=== PATIENT | male | born 1935 | race Caucasian/White ===

== ENCOUNTER 2016-09-17 23:39 | Emergency (ER) | payer MEDICARE, MEDICAID ==
[~2016-09-17] VITALS: Ht 167.6 cm; Wt 70.8 kg
[~2016-09-17 23:39] MED LIST: BENZTROPINE MESY1 MG PO; DOCUSATE SODIU100 MG ORAL; ISOSORBIDE MONO20 MG PO; LEVEMIR FL100 UNIT/1 SUBQ; MILK OF MA400 MG/51 ORAL; MULTIVITAMINS1 EAC2 ORAL; POTASSIUM20 MEQ/15 GT; QUETIAPINE FUMA25 MG ORAL; TYLENOL650 MG/20. ORAL; ZOLOFT25 MG ORAL
[2016-09-17 23:50] VITALS: BP 110/85
[2016-09-18] MEDS ORDERED: DULCOLAX5 MG RC (01:11)
[2016-09-18] MEDS ORDERED: COLACE100 MG GT (01:11)
[2016-09-18] MEDS ORDERED: ISOSORBIDE1 G1 GT (01:11)
[2016-09-18] MEDS ORDERED: ATIVAN0.5 MG GT (01:11)
[2016-09-18] MEDS ORDERED: DEPAKOTE125 MG GT (01:11)
--- NOTE | 2016-09-18 01:21 | Emergency Room Report ---
History of Present Illness General Chief Complaint: Malfunctioning Gastric Tube Source: Patient, Medical Record, EMS Present Illness HPI Is an 81-year-old male with multiple medical problem and also psychiatric problem. He has a feeding tube in. He comes in a [facility]. He presents with malfunctioning G-tube. A connecting part was not working broken. He has no other complaint. No trauma. Allergies: Coded Allergies: No Known Allergies (Unverified , 04/15/16) Patient History Past Medical History: see triage record, old chart reviewed, psych hx Past Surgical History: none Pertinent Family History: none Social History: Denies: smoking Immunizations: other Reviewed Nursing Documentation: PMH: Agreed, PSxH: Agreed Nursing Documentation-PMH Past Medical History: No History, Except For Hx Cardiac Problems: Yes - Anemia Hx Hypertension: Yes Hx Diabetes: Yes Hx Cancer: No Hx Gastrointestinal Problems: Yes - Dysphagia, GERD History Of Psychiatric Problem: Yes - Unspecified psychosis, Major depressive disorder, anxiety, paranoid schizop Hx Neurological Problems: Yes Hx Dementia: Yes Review of Systems Eye: Denies: blurred vision, eye pain ENT: Denies: ear pain, nose congestion, throat swelling Respiratory: Denies: cough, shortness of breath Cardiovascular: Denies: chest pain, palpitations Gastrointestinal: Denies: abdominal pain, diarrhea, nausea, vomiting Musculoskeletal: Denies: back pain, joint pain Skin: Denies: rash Neurological: Denies: headache, numbness Endocrine: Denies: increased thirst, increased urine Hematologic/Lymphatic: Denies: easy bruising All Other Systems: negative except mentioned in HPI Physical Exam Vital Signs Date Time Temp Pulse Resp B/P Pulse Ox O2 Delivery O2 Flow Rate FiO2 09/17/16 23:41 97.9 61 16 104/82 98 Room Air vitals normal Sp02 EP Interpretation: reviewed, normal General Appearance: well appearing, no apparent distress, alert Head: normocephalic, atraumatic Eyes: bilateral eye EOMI, bilateral eye PERRL ENT: hearing grossly normal, normal pharynx Neck: full range of motion, supple, no meningismus Respiratory: chest non-tender, lungs clear, normal breath sounds Cardiovascular #1: regular rate, rhythm, no murmur Gastrointestinal: normal bowel sounds, non tender, no mass, no organomegaly, no bruit, non-distended Musculoskeletal: back normal, gait/station normal, normal range of motion Neurologic: alert, oriented x3 Psychiatric: mood/affect normal Skin: warm/dry Procedures Additional Procedure Procedure Narrative Procedure: Feeding tube revision Indication: Feeding tube malfunction Description: His feeding tube is flushing fine. The connecting part with valve is broken. I removed this and place a Lorne valve. It flushes easily. Aspirated easily. Patient tolerated procedure without a problem. Medical Decision Making Diagnostic Impression: Primary Impression: Malfunction of percutaneous endoscopic gastrostomy (PEG) tube ER Course Patient presents with malfunctioning feeding tube. His been drinking here without a problem. He is walking around without a problem. We'll discharge home. Last Vital Signs Date Time Temp Pulse Resp B/P Pulse Ox O2 Delivery O2 Flow Rate FiO2 09/17/16 23:50 98.0 78 17 110/85 99 Room Air Status: improved Disposition: XFER SNF Condition: Stable Referrals: Leslie Funes MD (PCP) Patient Instructions: Gastrostomy Tube Home Guide, Adult Additional Instructions: Followup with your DrSamir in 7 days. Return if worse. SANFORD ABREU M.D. Sep 18, 2016 01:21
[2016-09-18 01:40] VITALS: BP 107/84
== END 2016-09-18 01:45 ==
LOC: EDBD 23:39 → EDUNIT# 23:39 → EMR 23:59
DX: K94.23 Gastrostomy malfunction (principal); Y83.8 Other surgical procedures as the cause of abnormal reaction of the patient, or of later complication, without mention of misadventure at the time of the procedure; Y92.89 Other specified places as the place of occurrence of the external cause; I10 Essential (primary) hypertension; E11.9 Type 2 diabetes mellitus without complications; F03.90 Unspecified dementia, unspecified severity, without behavioral disturbance, psychotic disturbance, mood disturbance, and anxiety
CPT/HCPCS: 43760

== ENCOUNTER 2017-02-26 10:21 | Emergency (ER) | payer MEDICARE, MEDICAID ==
[~2017-02-26] VITALS: Ht 175.3 cm; Wt 65.8 kg
[~2017-02-26 10:21] MED LIST changes: +ATIVAN0.5 MG GT; +COLACE100 MG GT; +DEPAKOTE125 MG GT; +DULCOLAX5 MG RC; +ISOSORBIDE1 G1 GT
--- NOTE | 2017-02-26 10:52 | Emergency Room Report ---
History of Present Illness General Chief Complaint: General Complaint Source: Patient, Medical Record Present Illness HPI Patient says with complaints of increasing worsening cough and shortness of breath patient appears to have exertional dyspnea at the boarding care facility There was no reports of vomiting or diarrhea Patient denies any chest pain with this however he does get fatigue more than usual cough has been ongoing for the past 7 days Patient describes phlegm production as well denies any neck pain or photophobia denies any rash Allergies: Coded Allergies: No Known Allergies (Unverified , 04/15/16) Patient History Past Medical History: see triage record Pertinent Family History: none Reviewed Nursing Documentation: PMH: Agreed, PSxH: Agreed Nursing Documentation-PMH Hx Cardiac Problems: Yes - CHF Hx Hypertension: Yes Hx Diabetes: Yes Hx Cancer: No History Of Psychiatric Problem: Yes - SCHIZO Hx Neurological Problems: Yes Hx Dementia: Yes Review of Systems All Other Systems: negative except mentioned in HPI Physical Exam Vital Signs Date Time Temp Pulse Resp B/P (MAP) Pulse Ox O2 Delivery O2 Flow Rate FiO2 02/26/17 10:09 98.1 60 16 120/70 98 Room Air Sp02 EP Interpretation: reviewed, normal General Appearance: no apparent distress Head: normocephalic, atraumatic Eyes: bilateral eye PERRL, bilateral eye EOMI ENT: hearing grossly normal, TMs + canals normal, uvula midline, dry mucus membranes, other - A denturelous Neck: full range of motion, supple, no meningismus, no bony tend Respiratory: no respiratory distress, no retraction, no accessory muscle use, crackles - diffusely Cardiovascular #1: normal peripheral pulses, regular rate, rhythm, no edema, no gallop, no JVD, no murmur Gastrointestinal: normal bowel sounds, non tender, soft, no mass, no organomegaly, non-distended, no guarding, no hernia, no pulsatile mass, no rebound, other - feeding tube in place Genitourinary: no CVA tenderness Musculoskeletal: normal inspection Neurologic: oriented x3, responsive, legal project manager III-XII nml as tested, motor strength/ tone normal, sensory intact Psychiatric: mood/affect normal Skin: normal color, no rash, warm/dry, palpation normal Lymphatic: normal inspection, no adenopathy Medical Decision Making Diagnostic Impression: Primary Impression: Cough Additional Impression: URI (upper respiratory infection) ER Course Patient is a fairly complex patient with multiple differential to consideration including but not limited to cardiac cardiopulmonary and vascular emergencies Patient's imaging of blood work did not show any obvious acute pathology Patient respirations are appropriate no signs of any retractions X-ray does not show any acute pathology patient does not meet criteria for further inpatient care and is discharged back to nursing facility for continued care Hemoglobin 11.8 hematocrit 36.2 these are both mildly low BUN was 34 which is mildly high troponin is 0.01 tooth which has a negative range BNP was elevated at 2300 patient does not show clinical signs of CHF Rhythm Strip Diag. Results EP Interpretation: yes Rate: 66 Rhythm: NSR, no PVC's, no ectopy Chest X-Ray Diagnostic Results Chest X-Ray Diagnostic Results : Chest X-Ray Ordered: Yes # of Views/Limited/Complete: 1 View Indication: Chest Pain EP Interpretation: Yes Interpretation: no consolidation, no effusion, no pneumothorax, no acute cardiopulmonary disease Impression: No acute disease Electronically Signed by: Juwan June DO Last Vital Signs Date Time Temp Pulse Resp B/P (MAP) Pulse Ox O2 Delivery O2 Flow Rate FiO2 02/26/17 10:09 98.1 60 16 120/70 98 Room Air Status: improved Disposition: XFER SNF Condition: Improved Scripts Codeine/Promethazine Hcl* (PROMETHAZINE-CODEINE SYRUP*) 118 Ml Syrup 5 ML ORAL Q8HR Y for For Cough for 5 Days, ML 0 Refills Prov: JUWAN JUNE D.O. 02/26/17 Additional Instructions: Patient is provided with the discharge instructions notified to follow up with primary doctor in the next 2-3 days otherwise return to the er with any worsening symptoms. Please note that this report is being documented using ReferStar technology. This can lead to erroneous entry secondary to incorrect interpretation by the dictating instrument. JUWAN JUNE D.O. Feb 26, 2017 10:52
--- NOTE | 2017-02-26 10:53 | Diagnostic Imaging Report ---
Indication: Dyspnea Comparison: 04/15/16 A single view chest radiograph was obtained. Findings: A mild interstitial opacities are noted within the lungs nonspecific. Overall the findings were seen previously. Heart is borderline enlarged. Bones are slight osteopenic. Impression: Prominence of the pulmonary interstitium nonspecific in nature. No change
[2017-02-26] MEDS ORDERED: Promethazine/Codeine 5ml UD ORAL ONE (11:00)
[2017-02-26 11:51] VITALS: BP 120/70
[2017-02-26 12:00] LABS: BASOPHILS % (AUTO) 0.8 % (0.0-2.0); EOSINOPHILS % (AUTO) 2.4 % (0.0-3.0); LYMPHOCYTES % (AUTO) 19.7 % (20.0-45.0); MEAN CORPUSCULAR HEMOGLOBIN 32.4 PG (27.0-31.0); MEAN CORPUSCULAR HGB CONC 32.5 G/DL (32.0-36.0); MEAN CORPUSCULAR VOLUME 100 FL (80-99); MEAN PLATELET VOLUME 7.6 FL (6.5-10.1); MONOCYTES % (AUTO) 8.3 % (1.0-10.0); NEUTROPHILS % (AUTO) 68.8 % (45.0-75.0); PLATELET COUNT 210 K/UL (150-450); RED BLOOD COUNT 3.64 M/UL (4.70-6.10); RED CELL DISTRIBUTION WIDTH 11.8 % (11.6-14.8); WHITE BLOOD COUNT 6.2 K/UL (4.8-10.8)
[2017-02-26 12:21] LABS: ALANINE AMINOTRANSFERASE 8 U/L (3-41); ALBUMIN/GLOBULIN RATIO 0.8 (1.0-2.7); ANION GAP 7 (5-15); ASPARTATE AMINO TRANSFERASE 15 U/L (5-40); CALCIUM 10.6 mg/dL (8.6-10.2); CARBON DIOXIDE 30 mEQ/L (20-30); CHLORIDE 100 mEQ/L (98-107); CREATININE 0.9 mg/dL (0.7-1.2); HEMOLYSIS 5; LIPASE 32 U/L (< 60); POTASSIUM 4.6 mEQ/L (3.4-4.9); SODIUM 137 mEQ/L (135-145); TOTAL PROTEIN 7.4 g/dL (6.6-8.7)
[2017-02-26 12:32] LABS: CKMB 1.8 ng/mL (< 6.7)
[2017-02-26] MEDS ORDERED: PROMETHAZINE-C118 M1 ORAL (12:44)
[2017-02-26 12:53] VITALS: BP 120/70
[2017-02-26 14:14] LABS: TROPONIN I 0.012 ng/mL (0.000-0.056)
[2017-02-26 19:47] VITALS: BP 120/70
--- NOTE | 2017-03-04 23:12 | Cardiology Report ---
APPROVED REPORT EKG Measurement Heart [id number] CT 100P25 [id number] Sinus bradycardia with short CT Right bundle branch block Lateral infarct, age undetermined Inferior infarct, age undetermined Abnormal ECG
== END 2017-02-26 19:49 | disposition home or self-care (01) ==
LOC: EDBD 10:21 → EMR 11:27 → CANBEDREQ 12:33 → EMR 19:49
DX: J06.9 Acute upper respiratory infection, unspecified (principal); I10 Essential (primary) hypertension; E11.9 Type 2 diabetes mellitus without complications; I50.9 Heart failure, unspecified
CPT/HCPCS: 36415; 71010; 80053; 82550; 82553; 83690; 83880; 84484; 85025; 87040; 93005; 99283

== ENCOUNTER 2017-04-24 12:15 | Inpatient (IN) | payer MEDICARE, MEDICAID ==
[~2017-04-24] VITALS: Ht 165.1 cm; Wt 77.1 kg
[~2017-04-24 12:15] MED LIST changes: +PROMETHAZINE-C118 M1 ORAL
[2017-04-24 14:05] VITALS: BP 108/56
[2017-04-24 14:13] LABS: BASOPHILS % (AUTO) 0.9 % (0.0-2.0); EOSINOPHILS % (AUTO) 1.4 % (0.0-3.0); LYMPHOCYTES % (AUTO) 21.6 % (20.0-45.0); MEAN CORPUSCULAR HEMOGLOBIN 32.8 PG (27.0-31.0); MEAN CORPUSCULAR HGB CONC 33.4 G/DL (32.0-36.0); MEAN CORPUSCULAR VOLUME 98 FL (80-99); MEAN PLATELET VOLUME 7.2 FL (6.5-10.1); PLATELET COUNT 168 K/UL (150-450); RED BLOOD COUNT 3.99 M/UL (4.70-6.10); RED CELL DISTRIBUTION WIDTH 12.9 % (11.6-14.8); WHITE BLOOD COUNT 5.5 K/UL (4.8-10.8)
[2017-04-24] MEDS ORDERED: COGENTIN1 MG ORAL (14:25)
[2017-04-24] MEDS ORDERED: DEPAKENE250 MG/5 M PO (14:25)
[2017-04-24 14:26] LABS: ANION GAP 5 mmol/L (5-15); CALCIUM 8.5 MG/DL (8.5-10.1); CARBON DIOXIDE 27 MMOL/L (21-32); CHLORIDE 110 MMOL/L (98-107); POTASSIUM 4.3 MMOL/L (3.5-5.1); SODIUM 142 MMOL/L (136-145)
[2017-04-24 14:27] LABS: INR 0.9 (0.9-1.1); PROTHROMBIN TIME 9.9 SEC (9.30-11.50)
[2017-04-24] MEDS ORDERED: Ampicillin/Sulbactam Sod 1.5 GM in NS 55 ML IVPB ONE (14:30)
[2017-04-24 14:31] LABS: ALANINE AMINOTRANSFERASE 9 U/L (12-78); ALBUMIN/GLOBULIN RATIO 0.7 (1.0-2.7); ASPARTATE AMINO TRANSFERASE 14 U/L (15-37); TOTAL PROTEIN 6.5 G/DL (6.4-8.2)
[2017-04-24] MEDS ORDERED: OMEPRAZOLE20 M3 GT (14:41)
[2017-04-24] MEDS ORDERED: GLUCERNA 1.5 C237 ML GT (14:44)
[2017-04-24] MEDS ORDERED: Unasyn 1.5gm Vial ONE (15:20)
[2017-04-24 16:10] VITALS: BP 110/58
[2017-04-24 17:00] VITALS: BP 124/53
[2017-04-24] MEDS ORDERED: Milk of Magnesia 30ml Ud ORAL PRN (18:00)
[2017-04-24] MEDS ORDERED: LORazepam Inj 2mg/ml 1ml IV PRN (18:30)
[2017-04-24 19:31] VITALS: BP 113/66
--- NOTE | 2017-04-24 19:37 | Emergency Room Report ---
History of Present Illness General Chief Complaint: Malfunctioning Gastric Tube Source: Patient, Medical Record, EMS Present Illness HPI The patient is an 81-year-old male brought in by ambulance from facility for G- tube replacement. The G-tube was said to be leaking. The patient has dementia and does not provide useful information at this time. He denies any pain or other symptoms including nausea, vomiting, fever, chills, shortness of breath, chest pain, abdominal pain Allergies: Coded Allergies: No Known Allergies (Unverified , 04/15/16) Patient History Past Medical History: see triage record, DM, HTN, dementia, other - G tube Pertinent Family History: none Reviewed Nursing Documentation: PMH: Agreed, PSxH: Agreed Nursing Documentation-PMH Past Medical History: No History, Except For Hx Cardiac Problems: Yes Hx Hypertension: Yes Hx COPD: Yes Hx Diabetes: Yes Hx Cancer: No Hx Gastrointestinal Problems: Yes - G-TUBE Hx Neurological Problems: Yes Hx Dementia: Yes Review of Systems All Other Systems: negative except mentioned in HPI Physical Exam Vital Signs Date Time Temp Pulse Resp B/P (MAP) Pulse Ox O2 Delivery O2 Flow Rate FiO2 04/24/17 12:11 97.3 73 16 100/54 97 Room Air Sp02 EP Interpretation: reviewed, normal General Appearance: no apparent distress, alert, GCS 15, non-toxic Head: normocephalic, atraumatic Eyes: bilateral eye normal inspection, bilateral eye PERRL ENT: hearing grossly normal, no angioedema, normal voice Neck: full range of motion, supple/symm/no masses Respiratory: chest non-tender, lungs clear, normal breath sounds, speaking full sentences Gastrointestinal: soft, no mass, no guarding, other - G tube in place Neurologic: alert, responsive, sensory intact Psychiatric: mood/affect normal, no suicidal/homicidal ideation, no delusions Skin: normal color, warm/dry, well hydrated, rash - erythema surrounding G tube site Medical Decision Making PA Attestation Dr. Bynum is my supervising physician. Patient management was discussed with my supervising physician Diagnostic Impression: Primary Impression: Malfunction of gastrostomy tube Additional Impression: Cellulitis at gastrostomy tube site ER Course The patient is an 81-year-old male brought in by ambulance from facility for G- tube replacement Differential diagnoses considered but not limited to: G-tube malfunction, cellulitis, perforation, among others Physical exam: Afebrile. No apparent distress Abdomen is soft. Normal bowel sounds. Nondistended. G-tube is in place. There is surrounding erythema and tenderness to palpation. The G-tube was attempted to be removed but was providing significant resistance. This G-tube does not have an inflation balloon. GI was consulted and arrived in the emergency department and removed the G-tube without complication. Labs are unremarkable The patient is given IV fluids and antibiotics for cellulitis. The patient is in stable condition and will be admitted. has spoken with admitting physician Laboratory Tests Test 04/24/17 13:50 White Blood Count 5.5 K/UL (4.8-10.8) Red Blood Count 3.99 M/UL (4.70-6.10) L Hemoglobin 13.1 G/DL (14.2-18.0) L Hematocrit 39.1 % (42.0-52.0) L Mean Corpuscular Volume 98 FL (80-99) Mean Corpuscular Hemoglobin 32.8 PG (27.0-31.0) H Mean Corpuscular Hemoglobin Concent 33.4 G/DL (32.0-36.0) Red Cell Distribution Width 12.9 % (11.6-14.8) Platelet Count 168 K/UL (150-450) Mean Platelet Volume 7.2 FL (6.5-10.1) Neutrophils (%) (Auto) 65.0 % (45.0-75.0) Lymphocytes (%) (Auto) 21.6 % (20.0-45.0) Monocytes (%) (Auto) 11.0 % (1.0-10.0) H Eosinophils (%) (Auto) 1.4 % (0.0-3.0) Basophils (%) (Auto) 0.9 % (0.0-2.0) Prothrombin Time 9.9 SEC (9.30-11.50) Prothrombin Time INR 0.9 (0.9-1.1) PTT 26 SEC (23-33) Sodium Level 142 MMOL/L (136-145) Potassium Level 4.3 MMOL/L (3.5-5.1) Chloride Level 110 MMOL/L (98-107) H Carbon Dioxide Level 27 MMOL/L (21-32) Anion Gap 5 mmol/L (5-15) Blood Urea Nitrogen 43 mg/dL (7-18) H Creatinine 1.0 MG/DL (0.55-1.30) Estimate Glomerular Filtration Rate mL/min (>60) Glucose Level 92 MG/DL (74-106) Calcium Level 8.5 MG/DL (8.5-10.1) Total Bilirubin 0.3 MG/DL (0.2-1.0) Aspartate Amino Transferase (AST) 14 U/L (15-37) L Alanine Aminotransferase (ALT) 9 U/L (12-78) L Alkaline Phosphatase 59 U/L (46-116) Total Protein 6.5 G/DL (6.4-8.2) Albumin 2.6 G/DL (3.4-5.0) L Globulin 3.9 g/dL Albumin/Globulin Ratio 0.7 (1.0-2.7) L Lab Results Impression unremarkable Last Vital Signs Date Time Temp Pulse Resp B/P (MAP) Pulse Ox O2 Delivery O2 Flow Rate FiO2 04/24/17 17:00 98.2 52 20 124/53 99 Room Air Status: improved Disposition: ADMITTED INPATIENT Condition: Stable Referrals: Leslie Funes MD (PCP) TAURUS DEL CID Apr 24, 2017 19:37
[2017-04-24 19:39] VITALS: BP 124/48
[2017-04-24] MEDS: Levemir Flexpen SUBQ SCH (21:00)
[2017-04-24] MEDS: Heparin 5000 units/ml inj SUBQ SCH (21:23)
[2017-04-24] MEDS: Polysporin Oint 30gm TOPIC SCH (21:31)
--- NOTE | 2017-04-24 21:34 | General Progress Note ---
Assessment/Plan Assessment/Plan GI Consult Dictated GT old and very deteriorated - needs to be changed Patient with mild GT site infection causing discomfort - declined bedside GT change due to pain But he agreed to endoscopic GT change, which is arranged for Mon Thank you Pieter Blandon MD Subjective Allergies: Coded Allergies: No Known Allergies (Unverified , 04/15/16) Objective Last 24 Hour Vital Signs Date Time Temp Pulse Resp B/P (MAP) Pulse Ox O2 Delivery O2 Flow Rate FiO2 04/24/17 19:39 97.3 53 20 124/48 99 Room Air 04/24/17 19:31 98.2 51 20 113/66 96 Room Air 04/24/17 17:00 98.2 52 20 124/53 99 Room Air 04/24/17 16:10 74 20 110/62 100 Room Air 04/24/17 16:10 97.6 78 20 110/58 98 Room Air 04/24/17 14:05 97.4 74 18 108/56 98 Room Air 04/24/17 12:11 97.3 73 16 100/54 97 Room Air Laboratory Tests 04/24/17 13:50: White Blood Count 5.5, Red Blood Count 3.99L, Hemoglobin 13.1L, Hematocrit 39.1L , Mean Corpuscular Volume 98, Mean Corpuscular Hemoglobin 32.8H, Mean Corpuscular Hemoglobin Concent 33.4, Red Cell Distribution Width 12.9, Platelet Count 168, Mean Platelet Volume 7.2, Neutrophils (%) (Auto) 65.0, Lymphocytes (% ) (Auto) 21.6, Monocytes (%) (Auto) 11.0H, Eosinophils (%) (Auto) 1.4, Basophils (%) (Auto) 0.9, Prothrombin Time 9.9, Prothromb Time International Ratio 0.9, Activated Partial Thromboplast Time 26, Sodium Level 142, Potassium Level 4.3, Chloride Level 110H, Carbon Dioxide Level 27, Anion Gap 5, Blood Urea Nitrogen 43H, Creatinine 1.0, Estimat Glomerular Filtration Rate , Glucose Level 92, Calcium Level 8.5, Total Bilirubin 0.3, Aspartate Amino Transf (AST/ SGOT) 14L, Alanine Aminotransferase (ALT/SGPT) 9L, Alkaline Phosphatase 59, Total Protein 6.5, Albumin 2.6L, Globulin 3.9, Albumin/Globulin Ratio 0.7L Height (Feet): 5 Height (Inches): 9.00 Weight (Pounds): 170 PIETER BLANDON Apr 24, 2017 21:34
[2017-04-24 23:08] VITALS: BP 120/82
[2017-04-25] MEDS: NovoLOG Insulin Flexpen SUBQ SCH ×4 (00:21→17:23)
--- NOTE | 2017-04-25 03:00 | Consultation ---
DATE OF CONSULTATION: 04/24/2017 GASTROENTEROLOGY CONSULTATION CONSULTING PHYSICIAN: Pieter Blandon M.D. REFERRING PHYSICIAN: Leslie Funes M.D. CHIEF COMPLAINT: I was asked to see this patient by Dr. Leslie Funes for evaluation of gastrostomy tube problems. HISTORY OF PRESENT ILLNESS: The patient is an 81-year-old white man with long-standing gastrostomy tube, who was brought in due to gastrostomy tube malfunction. The patient himself is a poor historian, is somewhat agitated, and cannot give much of the history. The gastrostomy tube appears to be old and reportedly was [facility]. There has been no nausea or vomiting. No fevers or chills. I examined the gastrostomy tube at bedside and there appeared to be a gastrostomy tube site infection. The patient was extremely tender at the gastrostomy site with gastrostomy manipulation. I offered to change the gastrostomy tube in the emergency room, but the patient stated that the manipulation hurt him too much and he refused it. He did agree to endoscopic replacement so he would not feel the discomfort while changing it. PAST MEDICAL HISTORY: History of anemia, hypoalbuminemia, history of malnutrition, psychiatric disorder, constipation, and diabetes. MEDICATIONS: See the chart list for details. ALLERGIES: None. FAMILY HISTORY: Noncontributory. SOCIAL HISTORY: The patient resides in a pen[facility]iary. REVIEW OF SYSTEMS: Otherwise negative. PHYSICAL EXAMINATION: GENERAL: Thin elderly white man seen in the emergency room. HEENT: Normocephalic and atraumatic. Dentition is poor. NECK: Supple. CHEST: Clear to auscultation. CARDIOVASCULAR: Regular rate. ABDOMEN: Soft. Gastrostomy tube was old and friable and bubbles out, however, it was flushed to clear by this physician. The gastrostomy site skin appeared to be red and tender to palpation, but without actual abscess, fluctuance, or purulence. Manipulation caused the patient extreme discomfort and therefore the gastrostomy tube could not be changed at bedside. EXTREMITIES: Revealed no edema. LABORATORY DATA: Noted. ASSESSMENT: This patient presents with gastrostomy site infection which is somewhat superficial that is causing the patient significant tenderness. He should be admitted for antibiotic treatment and wound care. In the meantime, I will retry using gastrostomy tube as an inpatient for feeding. The gastrostomy tube itself appears to be very old and very dysfunctional and needs to be replaced, but this should be arranged in an endoscopic fashion so the patient does not have any discomfort during the procedure. RECOMMENDATIONS: Per above discussion and per orders written in the chart. Thank you for asking me to participate in the care of this patient. Pieter Blandon M.D. DR: URIEL JOB#: [id number] CC:
[2017-04-25 04:00] VITALS: BP 126/56
[2017-04-25 07:54] LABS: BASOPHILS % (AUTO) 1.1 % (0.0-2.0); EOSINOPHILS % (AUTO) 1.9 % (0.0-3.0); LYMPHOCYTES % (AUTO) 25.2 % (20.0-45.0); MEAN CORPUSCULAR HEMOGLOBIN 33.5 PG (27.0-31.0); MEAN CORPUSCULAR HGB CONC 33.5 G/DL (32.0-36.0); MEAN CORPUSCULAR VOLUME 100 FL (80-99); MEAN PLATELET VOLUME 8.5 FL (6.5-10.1); MONOCYTES % (AUTO) 8.6 % (1.0-10.0); NEUTROPHILS % (AUTO) 63.3 % (45.0-75.0); PLATELET COUNT 166 K/UL (150-450); RED BLOOD COUNT 3.97 M/UL (4.70-6.10); RED CELL DISTRIBUTION WIDTH 13.2 % (11.6-14.8); WHITE BLOOD COUNT 5.4 K/UL (4.8-10.8)
[2017-04-25 08:00] VITALS: BP 102/46
[2017-04-25] MEDS: Multivitamins W/Minerals 15 ML UDC NG SCH (08:07)
[2017-04-25] MEDS: Polysporin Oint 30gm TOPIC SCH ×4 (08:07→20:18)
[2017-04-25 08:09] LABS: ALANINE AMINOTRANSFERASE 14 U/L (12-78); ALBUMIN/GLOBULIN RATIO 0.8 (1.0-2.7); ANION GAP 5 mmol/L (5-15); ASPARTATE AMINO TRANSFERASE 19 U/L (15-37); CALCIUM 10.5 MG/DL (8.5-10.1); CARBON DIOXIDE 26 MMOL/L (21-32); CHLORIDE 107 MMOL/L (98-107); POTASSIUM 5.2 MMOL/L (3.5-5.1); SODIUM 138 MMOL/L (136-145); TOTAL PROTEIN 7.4 G/DL (6.4-8.2)
[2017-04-25] MEDS: Heparin 5000 units/ml inj SUBQ SCH ×3 (08:09→20:24)
[2017-04-25 12:00] VITALS: BP 158/57
--- NOTE | 2017-04-25 13:36 | History & Physical ---
History and Physical History & Physicial seen and examined. Dict # [id number] Leslie Funes MD Apr 25, 2017 13:36
--- NOTE | 2017-04-25 13:38 | General Progress Note ---
Assessment/Plan Status: stable Assessment/Plan 1- Peg -t dislodgment 2- Malnuritionment 3- Dehydration 4- Anemia 5- CAD- history ( provisional dx) 6- Gi-DVT prophylaxia Plan:: Proceed with PEG-T - Re-insertion per GI Subjective ROS Limited/Unobtainable: Yes Allergies: Coded Allergies: No Known Allergies (Unverified , 04/15/16) Objective Last 24 Hour Vital Signs Date Time Temp Pulse Resp B/P (MAP) Pulse Ox O2 Delivery O2 Flow Rate FiO2 04/25/17 12:00 98.2 56 20 158/57 100 04/25/17 08:00 96.3 54 20 102/46 100 04/25/17 04:00 97.2 56 20 126/56 100 04/24/17 23:08 97.7 54 20 120/82 98 Room Air 54 04/24/17 19:39 97.3 53 20 124/48 99 Room Air 04/24/17 19:31 98.2 51 20 113/66 96 Room Air 04/24/17 17:00 98.2 52 20 124/53 99 Room Air 04/24/17 16:10 74 20 110/62 100 Room Air 04/24/17 16:10 97.6 78 20 110/58 98 Room Air 04/24/17 14:05 97.4 74 18 108/56 98 Room Air Intake and Output 04/25/17 04/26/17 19:00 07:00 # Bowel Movements 1 Laboratory Tests 04/24/17 13:50: White Blood Count 5.5, Red Blood Count 3.99L, Hemoglobin 13.1L, Hematocrit 39.1L , Mean Corpuscular Volume 98, Mean Corpuscular Hemoglobin 32.8H, Mean Corpuscular Hemoglobin Concent 33.4, Red Cell Distribution Width 12.9, Platelet Count 168, Mean Platelet Volume 7.2, Neutrophils (%) (Auto) 65.0, Lymphocytes (% ) (Auto) 21.6, Monocytes (%) (Auto) 11.0H, Eosinophils (%) (Auto) 1.4, Basophils (%) (Auto) 0.9, Prothrombin Time 9.9, Prothromb Time International Ratio 0.9, Activated Partial Thromboplast Time 26, Sodium Level 142, Potassium Level 4.3, Chloride Level 110H, Carbon Dioxide Level 27, Anion Gap 5, Blood Urea Nitrogen 43H, Creatinine 1.0, Estimat Glomerular Filtration Rate , Glucose Level 92, Calcium Level 8.5, Total Bilirubin 0.3, Aspartate Amino Transf (AST/ SGOT) 14L, Alanine Aminotransferase (ALT/SGPT) 9L, Alkaline Phosphatase 59, Total Protein 6.5, Albumin 2.6L, Globulin 3.9, Albumin/Globulin Ratio 0.7L 04/25/17 06:50: White Blood Count 5.4, Red Blood Count 3.97L, Hemoglobin 13.3L, Hematocrit 39.7L , Mean Corpuscular Volume 100H, Mean Corpuscular Hemoglobin 33.5H, Mean Corpuscular Hemoglobin Concent 33.5, Red Cell Distribution Width 13.2, Platelet Count 166, Mean Platelet Volume 8.5, Neutrophils (%) (Auto) 63.3, Lymphocytes (% ) (Auto) 25.2, Monocytes (%) (Auto) 8.6, Eosinophils (%) (Auto) 1.9, Basophils ( %) (Auto) 1.1, Sodium Level 138, Potassium Level 5.2H, Chloride Level 107, Carbon Dioxide Level 26, Anion Gap 5, Blood Urea Nitrogen 40H, Creatinine 1.0, Estimat Glomerular Filtration Rate , Glucose Level 113H, Calcium Level 10.5#H, Total Bilirubin 0.5, Aspartate Amino Transf (AST/SGOT) 19, Alanine Aminotransferase (ALT/SGPT) 14, Alkaline Phosphatase 74, Total Protein 7.4, Albumin 3.2L, Globulin 4.2, Albumin/Globulin Ratio 0.8L, Hemoglobin A1c 5.9 Height (Feet): 5 Height (Inches): 9.00 Weight (Pounds): 170 General Appearance: WD/WN EENT: PERRL/EOMI Neck: non-tender Cardiovascular: normal rate Respiratory/Chest: lungs clear Abdomen: soft, other - Feeding - t inplace Extremities: non-tender, other - lmited exam. as is not following commands Leslie Funes MD Apr 25, 2017 13:38
[2017-04-25 16:00] VITALS: BP 139/58
--- NOTE | 2017-04-25 18:45 | History and Physical Report ---
DATE OF ADMISSION: 04/24/2017 SOURCE OF INFORMATION: EMR. HISTORY OF PRESENT ILLNESS: The patient is an 81-year-old male with multiple medical problems. The patient at baseline is confused. Source of information from the EMR and from the half-way staff. The patient is reported to have a leakage during the regular tube feeding. The patient has not been reported to suffer from chest pain, shortness of breath, or abdominal pain. Positive for episode of diarrhea. Negative for nausea and vomitus. HALF-WAY MEDICATIONS: Including, but not limited to Vicodin, Cogentin, Depakote, Colace, Levemir, and isosorbide mononitrate. ALLERGIES: NKDA. FAMILY HISTORY: Reviewed and noncontributory. SOCIAL HISTORY: The patient is currently residing in the group home facility. CODE STATUS: Comfort measures only, DNR. REVIEW OF SYSTEMS: All 12 elements of review of systems reviewed. Pertinent positive and negative as above. PHYSICAL EXAMINATION: VITAL SIGNS: Blood pressure 100/60, temperature 98.2, pulse oximetry 98% on room air, and pulse rate 75. HEAD AND NECK: Atraumatic and normocephalic. CHEST: Clear to auscultation. HEART: S1 and S2. Regular rate and rhythm. ABDOMEN: Soft. PEG tube in place. Positive for oozing residual around the orifice. No organomegaly. NEUROLOGIC: The patient is awake, alert and oriented x1. PSYCHIATRIC: Mood and affect are anxious. LABORATORY AND DIAGNOSTIC DATA: Labs dated 04/24/2017 shows WBC 5.5, hemoglobin 13.1, and platelets 168. Sodium 142, potassium 4.3, BUN 43, and creatinine 1. Chest x-ray dated 02/26/2017 was unremarkable. ASSESSMENT: 1. Dislodgement of the percutaneous endoscopic gastrostomy tube. 2. Dehydration. 3. Anemia. 4. Protein malnourishment - moderate. 5. Psychiatric disorder. 6. Coronary artery disease (extent unknown) stable. No evidence of active acute coronary syndrome. 7. Gastrointestinal and deep vein thrombosis prophylaxes. PLAN OF CARE: Gastroenterology is consulted. Continue with the half-way medication including sliding scale insulin. Leslie Funes M.D. DR: KAILEY JOB#: [id number] CC:
[2017-04-25 20:00] VITALS: BP 121/59
[2017-04-25] MEDS: Levemir Flexpen SUBQ SCH (20:07)
--- NOTE | 2017-04-25 20:28 | General Progress Note ---
Assessment/Plan Assessment/Plan Assessment - GT site mild infection - deteriorated GT - needs change - unable to change GT at bedside due to pain Recommendations - continue GT feeds - endoscopic GT change in am Subjective Allergies: Coded Allergies: No Known Allergies (Unverified , 04/15/16) Subjective feels ok no new complaints tolerating TF Objective Last 24 Hour Vital Signs Date Time Temp Pulse Resp B/P (MAP) Pulse Ox O2 Delivery O2 Flow Rate FiO2 04/25/17 20:00 97.0 50 20 121/59 97 Room Air 04/25/17 17:39 139/58 04/25/17 16:00 Room Air 04/25/17 16:00 97.3 51 20 139/58 100 04/25/17 12:00 Room Air 04/25/17 12:00 98.2 56 20 158/57 100 04/25/17 08:00 96.3 54 20 102/46 100 04/25/17 08:00 Room Air 04/25/17 04:00 97.2 56 20 126/56 100 04/24/17 23:08 97.7 54 20 120/82 98 Room Air 54 Intake and Output 04/25/17 04/26/17 19:00 07:00 Intake Total 180 ml Balance 180 ml Intake Free Water 60 ml Tube Feeding 120 ml # Voids 4 # Bowel Movements 2 Laboratory Tests 04/25/17 06:50: White Blood Count 5.4, Red Blood Count 3.97L, Hemoglobin 13.3L, Hematocrit 39.7L , Mean Corpuscular Volume 100H, Mean Corpuscular Hemoglobin 33.5H, Mean Corpuscular Hemoglobin Concent 33.5, Red Cell Distribution Width 13.2, Platelet Count 166, Mean Platelet Volume 8.5, Neutrophils (%) (Auto) 63.3, Lymphocytes (% ) (Auto) 25.2, Monocytes (%) (Auto) 8.6, Eosinophils (%) (Auto) 1.9, Basophils ( %) (Auto) 1.1, Sodium Level 138, Potassium Level 5.2H, Chloride Level 107, Carbon Dioxide Level 26, Anion Gap 5, Blood Urea Nitrogen 40H, Creatinine 1.0, Estimat Glomerular Filtration Rate , Glucose Level 113H, Hemoglobin A1c 5.9, Calcium Level 10.5#H, Total Bilirubin 0.5, Aspartate Amino Transf (AST/SGOT) 19 , Alanine Aminotransferase (ALT/SGPT) 14, Alkaline Phosphatase 74, Total Protein 7.4, Albumin 3.2L, Globulin 4.2, Albumin/Globulin Ratio 0.8L Height (Feet): 5 Height (Inches): 9.00 Weight (Pounds): 170 Objective WDWN NCAT supple CTA RRR Soft ND NT, GT site with less erythema nonfocal EL GOODMAN Apr 25, 2017 20:28
[2017-04-26] VITALS (11 sets, daily range): BP systolic 115–144; BP diastolic 48–97
[2017-04-26] MEDS: NovoLOG Insulin Flexpen SUBQ SCH ×3 (06:00→12:00)
--- NOTE | 2017-04-26 07:09 | Anethesia Preoperative Eval ---
Anesthesia Pre-op PMH/ROS General Date of Evaluation: Apr 26, 2017 Time of Evaluation: 07:04 Anesthesiologist: kong ASA Score: ASA 4 Mallampati Score Class I : Soft palate, uvula, fauces, pillars visible Class II: Soft palate, uvula, fauces visible Class III: Soft palate, base of uvula visible Class IV: Only hard plate visible Mallampati Classification: Class II Surgeon: ami Diagnosis: dysphagia, j-tube malfunction Surgical Procedure: egd/peg Anesthesia History: none Family History: no anesthesia problems Allergies: Coded Allergies: No Known Allergies (Unverified , 04/15/16) Medications: see eMAR Past Medical History Cardiovascular: Reports: HTN Pulmonary: Reports: COPD Gastrointestinal/Genitourinary: Reports: GERD, ESRD - dialysis Neurologic/Psychiatric: Reports: dementia, depression/anxiety Endocrine: Reports: DM Anesthesia Pre-op Phys. Exam Physician Exam Last Vital Signs Date Time Temp Pulse Resp B/P (MAP) Pulse Ox O2 Delivery O2 Flow Rate FiO2 04/26/17 04:00 97.7 81 20 144/97 96 Room Air Constitutional: NAD Neurologic: CN 2-12 intact Cardiovascular: RRR Respiratory: CTA Gastrointestinal: S/NT/ND Airway Exam Mallampati Score: Class II MO: full Neck: supple TMD: 2fb ROM: limited Teeth: missing Anesthesia Pre-op A/P Labs Hematology Test 04/26/17 05:10 White Blood Count Pending Red Blood Count Pending Hemoglobin Pending Hematocrit Pending Mean Corpuscular Volume Pending Mean Corpuscular Hemoglobin Pending Mean Corpuscular Hemoglobin Concent Pending Red Cell Distribution Width Pending Platelet Count Pending Mean Platelet Volume Pending Neutrophils (%) (Auto) Pending Lymphocytes (%) (Auto) Pending Monocytes (%) (Auto) Pending Eosinophils (%) (Auto) Pending Basophils (%) (Auto) Pending Chemistry Test 04/26/17 05:10 Sodium Level Pending Potassium Level Pending Chloride Level Pending Carbon Dioxide Level Pending Blood Urea Nitrogen Pending Creatinine Pending Estimat Glomerular Filtration Rate Pending Glucose Level Pending Calcium Level Pending Total Bilirubin Pending Aspartate Amino Transf (AST/SGOT) Pending Alanine Aminotransferase (ALT/SGPT) Pending Alkaline Phosphatase Pending Total Protein Pending Albumin Pending Globulin Pending Accucheck 106 Risk Assessment & Plan Assessment: asa4 Plan: mac Status Change Before Surgery: No Pre-Antibiotics Drug: KIMBERLY Khan Apr 26, 2017 07:09
[2017-04-26 07:14] LABS: BASOPHILS % (AUTO) 1.6 % (0.0-2.0); EOSINOPHILS % (AUTO) 2.8 % (0.0-3.0); LYMPHOCYTES % (AUTO) 33.5 % (20.0-45.0); MEAN CORPUSCULAR HEMOGLOBIN 33.1 PG (27.0-31.0); MEAN CORPUSCULAR HGB CONC 33.5 G/DL (32.0-36.0); MEAN CORPUSCULAR VOLUME 99 FL (80-99); MEAN PLATELET VOLUME 8.5 FL (6.5-10.1); MONOCYTES % (AUTO) 12.5 % (1.0-10.0); NEUTROPHILS % (AUTO) 49.7 % (45.0-75.0); PLATELET COUNT 158 K/UL (150-450); RED BLOOD COUNT 4.25 M/UL (4.70-6.10); WHITE BLOOD COUNT 4.9 K/UL (4.8-10.8)
[2017-04-26 07:21] LABS: ALANINE AMINOTRANSFERASE 12 U/L (12-78); ALBUMIN/GLOBULIN RATIO 0.7 (1.0-2.7); ANION GAP 5 mmol/L (5-15); ASPARTATE AMINO TRANSFERASE 19 U/L (15-37); CALCIUM 10.7 MG/DL (8.5-10.1); CARBON DIOXIDE 27 MMOL/L (21-32); CHLORIDE 106 MMOL/L (98-107); POTASSIUM 4.5 MMOL/L (3.5-5.1); SODIUM 138 MMOL/L (136-145); TOTAL PROTEIN 7.7 G/DL (6.4-8.2)
[2017-04-26] MEDS ORDERED: DiphenhydrAMINE 50mg/ml Inj IVP PRN (08:45)
[2017-04-26] MEDS ORDERED: Midazolam 2mg/2ml Inj IVP PRN (08:45)
[2017-04-26] MEDS ORDERED: Atropine Inj 1mg/10ml Syr IV PRN (08:45)
[2017-04-26] MEDS ORDERED: fentaNYL 100 mcg/2 mL IV PRN (08:45)
[2017-04-26] MEDS: Heparin 5000 units/ml inj SUBQ SCH (09:00)
[2017-04-26] MEDS: Multivitamins W/Minerals 15 ML UDC NG SCH (09:00)
[2017-04-26] MEDS: Polysporin Oint 30gm TOPIC SCH ×2 (09:00→13:28)
--- NOTE | 2017-04-26 09:56 | Pre-Procedure Note/Attestation ---
Pre-Procedure Note/Attestation Complete Prior to Procedure Planned Procedure: not applicable Procedure Narrative: esophagogastroduodenoscopy and GT replacement Indications for Procedure Pre-Operative Diagnosis: gt leak Attestation I attest that I discussed the nature of the procedure; its benefits; risks and complications; and alternatives (and the risks and benefits of such alternatives ), prior to the procedure, with the patient (or the patient's legal hotel services sales representative). I attest that, if there was a reasonable possibility of needing a blood transfusion, the patient (or the patient's legal hotel services sales representative) was given the [facility] standardized written summary, pursuant to the Jem Tamanna Blood Safety Act ([place] Health and Safety Code # 1645, as amended). I attest that I re-evaluated the patient just prior to the surgery and that there has been no change in the patient's H&P, except as documented below: JUANIS SILVA Apr 26, 2017 09:56
[2017-04-26] MEDS ORDERED: Lidocaine 1% MPF 10mg/ml 5ml ONE (10:00)
[2017-04-26] MEDS ORDERED: Propofol 200mg/20ml IV ONE (10:00)
[2017-04-26] MEDS ORDERED: NS 500ML IV ONE (10:20)
--- NOTE | 2017-04-26 10:39 | General Progress Note ---
Assessment/Plan Problem List: (1) Malfunction of gastrostomy tube ICD Codes: K94.23 - Gastrostomy malfunction; L03.319 - Cellulitis of trunk, unspecified SNOMED: 268674377, 344204932 (2) Anemia ICD Codes: D64.9 - Anemia, unspecified SNOMED: 519097305 (3) Hypoalbuminemia ICD Codes: E88.09 - Other disorders of plasma-protein metabolism, not elsewhere classified SNOMED: 813223071 Assessment/Plan GT was changed today ok to dc start feeding later today Subjective ROS Limited/Unobtainable: No Allergies: Coded Allergies: No Known Allergies (Unverified , 04/15/16) Objective Last 24 Hour Vital Signs Date Time Temp Pulse Resp B/P (MAP) Pulse Ox O2 Delivery O2 Flow Rate FiO2 04/26/17 09:00 127/61 04/26/17 08:00 96.6 47 16 127/61 98 Room Air 04/26/17 04:00 97.7 81 20 144/97 96 Room Air 04/26/17 00:00 97.0 99 20 127/89 97 Room Air 04/25/17 20:00 97.0 50 20 121/59 97 Room Air 04/25/17 17:39 139/58 04/25/17 16:00 Room Air 04/25/17 16:00 97.3 51 20 139/58 100 04/25/17 12:00 Room Air 04/25/17 12:00 98.2 56 20 158/57 100 Laboratory Tests 04/26/17 05:10: White Blood Count 4.9, Red Blood Count 4.25L, Hemoglobin 14.1L, Hematocrit 42.0 , Mean Corpuscular Volume 99, Mean Corpuscular Hemoglobin 33.1H, Mean Corpuscular Hemoglobin Concent 33.5, Red Cell Distribution Width 13.0, Platelet Count 158, Mean Platelet Volume 8.5, Neutrophils (%) (Auto) 49.7, Lymphocytes (% ) (Auto) 33.5, Monocytes (%) (Auto) 12.5H, Eosinophils (%) (Auto) 2.8, Basophils (%) (Auto) 1.6, Sodium Level 138, Potassium Level 4.5, Chloride Level 106, Carbon Dioxide Level 27, Anion Gap 5, Blood Urea Nitrogen 34H, Creatinine 1.0, Estimat Glomerular Filtration Rate , Glucose Level 104, Calcium Level 10.7H , Total Bilirubin 0.5, Aspartate Amino Transf (AST/SGOT) 19, Alanine Aminotransferase (ALT/SGPT) 12, Alkaline Phosphatase 74, Total Protein 7.7, Albumin 3.1L, Globulin 4.6, Albumin/Globulin Ratio 0.7L Height (Feet): 5 Height (Inches): 5.00 Weight (Pounds): 170 General Appearance: no apparent distress EENT: normal ENT inspection Neck: normal alignment Cardiovascular: normal rate Respiratory/Chest: lungs clear Abdomen: normal bowel sounds, non tender, soft Extremities: non-tender JUANIS SILVA Apr 26, 2017 10:39
--- NOTE | 2017-04-26 10:40 | Endoscopy Procedure Note ---
Endoscopy Procedure Note Indication for Procedure: malfunctioning GT Procedures Performed: EGD Operative Findings/Diagnosis: gastritis Specimen: yes Pt Tolerated Procedure Well: Yes Estimated Blood Loss: none Anesthesiologist: ghazal Anesthesia: MAC Implant(s) used?: No 50 yrs or older w/o bx or poly: Not Applicable 10yrs. F/U not recommended: Not Applicable JUANIS SILVA Apr 26, 2017 10:40
--- NOTE | 2017-04-26 10:49 | Wound Care Consultation ---
Wound Assessment Wound Assessment #1: Wound Number: 1 Wound Present on Admission: Yes New Wound: No Status Change of Wound: No Wound Location Body Site Modif: mid Wound Location Body Site: other - Sacrococcygeal Wound Type: pressure ulcer Ricardo Test: Does not Ricardo Pressure Ulcer Stage: I Wound Length: 2.5 Wound Width: 2.5 Percent of Wound [place]/Red: 100 Wound Drainage Amount: None Wound Drainage Odor: None/Absent Tissue Surrounding Wound: Erythemic Wound General Appearance: Reddened Wound Assessment #2: Wound Number: 2 Wound Present on Admission: Yes New Wound: No Status Change of Wound: No Wound Location Body Site: perineal area Wound Type: chemical burn Ricardo Test: Does not Ricardo Percent of Wound [place]/Red: 100 Wound Drainage Amount: None Wound Drainage Odor: None/Absent Tissue Surrounding Wound: Erythemic Wound General Appearance: Reddened Wound Comment #1 Sacrococcygeal stage I pressure ulcer extending to left and right buttock #2 Chemical burn on perineal area Recommendation -Local wound care per protocol -Keep clean and dry -Turn and reposition -Optimize nutrition -Low air loss mattress -Offload both heels -Heel protector on both -Assess and f/u accordingly for any changes NADIA FELIZ RN Apr 26, 2017 10:49
--- NOTE | 2017-04-26 10:52 | General Progress Note ---
Assessment/Plan Status: stable Assessment/Plan 1. Dislodgement of the percutaneous endoscopic gastrostomy tube. 2. Dehydration. 3. Anemia. 4. Protein malnourishment - moderate. 5. Psychiatric disorder. 6. Coronary artery disease (extent unknown) stable. No evidence of active acute coronary syndrome. 7. Gastrointestinal and deep vein thrombosis prophylaxes. Plan:: S/P EGD and replacement of PEG-T - ok to followup as out patient Subjective ROS Limited/Unobtainable: Yes - demented. appears comfortable Allergies: Coded Allergies: No Known Allergies (Unverified , 04/15/16) Objective Last 24 Hour Vital Signs Date Time Temp Pulse Resp B/P (MAP) Pulse Ox O2 Delivery O2 Flow Rate FiO2 04/26/17 10:45 43 15 115/59 100 Room Air 04/26/17 10:40 42 15 129/48 100 Nasal Cannula 3.0 04/26/17 10:36 97.1 43 28 127/52 100 Nasal Cannula 3.0 04/26/17 09:00 127/61 04/26/17 08:00 96.6 47 16 127/61 98 Room Air 04/26/17 04:00 97.7 81 20 144/97 96 Room Air 04/26/17 00:00 97.0 99 20 127/89 97 Room Air 04/25/17 20:00 97.0 50 20 121/59 97 Room Air 04/25/17 17:39 139/58 04/25/17 16:00 Room Air 04/25/17 16:00 97.3 51 20 139/58 100 04/25/17 12:00 Room Air 04/25/17 12:00 98.2 56 20 158/57 100 Laboratory Tests 04/26/17 05:10: White Blood Count 4.9, Red Blood Count 4.25L, Hemoglobin 14.1L, Hematocrit 42.0 , Mean Corpuscular Volume 99, Mean Corpuscular Hemoglobin 33.1H, Mean Corpuscular Hemoglobin Concent 33.5, Red Cell Distribution Width 13.0, Platelet Count 158, Mean Platelet Volume 8.5, Neutrophils (%) (Auto) 49.7, Lymphocytes (% ) (Auto) 33.5, Monocytes (%) (Auto) 12.5H, Eosinophils (%) (Auto) 2.8, Basophils (%) (Auto) 1.6, Sodium Level 138, Potassium Level 4.5, Chloride Level 106, Carbon Dioxide Level 27, Anion Gap 5, Blood Urea Nitrogen 34H, Creatinine 1.0, Estimat Glomerular Filtration Rate , Glucose Level 104, Calcium Level 10.7H , Total Bilirubin 0.5, Aspartate Amino Transf (AST/SGOT) 19, Alanine Aminotransferase (ALT/SGPT) 12, Alkaline Phosphatase 74, Total Protein 7.7, Albumin 3.1L, Globulin 4.6, Albumin/Globulin Ratio 0.7L Height (Feet): 5 Height (Inches): 5.00 Weight (Pounds): 170 General Appearance: no apparent distress EENT: PERRL/EOMI Neck: supple Cardiovascular: normal rate Respiratory/Chest: lungs clear Abdomen: soft, other - PEG t in place Extremities: non-tender Neurologic: disoriented, other - at base line Leslie Funes MD Apr 26, 2017 10:52
--- NOTE | 2017-04-26 10:55 | Immediate Post-Op Evaluation ---
Immediate Post-Op Evalulation Immediate Post-Op Evalulation Procedure: egd/ g-tube replacement Date of Evaluation: Apr 26, 2017 Time of Evaluation: 10:48 IV Fluids: 100ml 0.9ns Blood Products: none Estimated Blood Loss: negligible Blood Pressure Systolic: 115 Blood Pressure Diastolic: 59 Pulse Rate: 43 Respiratory Rate: 18 O2 Sat by Pulse Oximetry: 100 Temperature (Fahrenheit): 97.1 Pain Score (1-10): 0 Nausea: No Vomiting: No Complications none Patient Status: awake, reacts, patent Hydration Status: adequate Drug: KIMBERLY Khan Apr 26, 2017 10:55
--- NOTE | 2017-04-26 10:57 | 48 Hour Post Anesthesia Eval ---
Post Anesthesia Evaluation Procedure: egd/ g-tube replacement Date of Evaluation: Apr 26, 2017 Time of Evaluation: 10:56 Blood Pressure Systolic: 115 0: 59 Pulse Rate: 50 Respiratory Rate: 18 Temperature (Fahrenheit): 97.1 O2 Sat by Pulse Oximetry: 100 Airway: patent Nausea: No Vomiting: No Pain Intensity: 0 Hydration Status: adequate Cardiopulmonary Status: stable Mental Status/LOC: patient returned to baseline Post-Anesthesia Complications: none Follow-up care needed: N/A KIMBERLY RUVALCABA Apr 26, 2017 10:57
[2017-04-26] MEDS ORDERED: DULCOLAX10 MG RC (11:43)
[2017-04-26] MEDS ORDERED: GLUCAGON W/DILUE1 MG IM (11:44)
[2017-04-26] MEDS ORDERED: ISOSORBIDE MONO30 M1 PO (11:45)
--- NOTE | 2017-04-26 16:00 | Procedure Note ---
DATE OF PROCEDURE: 04/26/2017 SURGEON: Sorin Cheung M.D. REFERRING PHYSICIAN: Leslie Funes M.D. PROCEDURE: Upper endoscopy with biopsy and G-tube replacement. ANESTHESIOLOGIST: Per Dr. Messer. INSTRUMENT: Olympus adult flexible upper endoscope. INDICATION: Malfunctioning G-tube. The procedure, risks, benefits, and possible consequences, including hemorrhage, aspiration, perforation and infection, and alternative treatments, were explained to the patient/legal guardian by Dr. Sorin Cheung and the patient/legal guardian understood and accepted these risks. DESCRIPTION OF PROCEDURE: After informed consent was obtained and the patient was adequately sedated, the Olympus upper endoscope was advanced from mouth into the second portion of duodenum and retroflexion was performed in the stomach. The patient had diffuse severe gastritis, questionable for portal hypertensive gastropathy with cobblestoning of the mucosa, erythema, which was biopsied for evaluation. Then, the old G-tube was cut and removed with the snare from inside and then 20-[place] balloon type of G-tube replacement was placed without any complication. The patient tolerated the procedure without any complication. SUMMARY OF FINDINGS: 1. Status post successful G-tube replacement. 2. Severe diffuse gastritis, questionable for portal hypertensive gastropathy, status post biopsy. RECOMMENDATIONS: Follow up biopsy results and treat accordingly. I want to thank Dr. Funes for this kind referral. Sorin Cheung M.D. DR: RUSSEL JOB#: [id number] CC: Leslie Funes M.D.; Fax#: [phone]
--- NOTE | 2017-04-28 14:06 | Discharge Summary ---
Discharge Summary Hospital Course Date of Admission Apr 24, 2017 at 13:32 Date of Discharge Apr 26, 2017 at 16:00 Admitting Diagnosis J tube malfunction HPI Jh Lemos is a 81 year old male who was admitted on Apr 24, 2017 at 13:32 for J Tube Malfunction Hospital Course dc summary #[id number] Discharge Medications Continued Medications: Acetaminophen (Acetaminophen) 650 Mg/20.3 Ml Solution 650 MG ORAL Q8H PRN for Prn Headache/Temp > 101, ML 0 Refills Benztropine Mesylate (Cogentin 1mg*) 1 Mg Tablet 1 MG ORAL EVERY 8 HOURS, TAB Bisacodyl (Dulcolax) 10 Mg Supp.rect 10 MG RC DAILY PRN for Constipation, SUPP Docusate Sodium* (Docusate Sodium*) 100 Mg Capsule 100 MG ORAL TWICE A DAY, CAP Glucagon (Glucagen) 1 Mg/1 Ml Vial 1 MG IM PRN PRN for Hypoglycemia, VIAL Insulin Detemir (Levemir Flexpen) 100 Unit/1 Ml Insuln.pen 5 SUBQ BEDTIME, #300 UNITS 0 Refills Isosorbide Mononitrate (Isosorbide Mononitrate Er) 30 Mg Tab.er.24h 30 MG PO DAILY, TAB Lorazepam* (Ativan*) 0.5 Mg Tablet 1 MG GT Q8HR PRN for Agitation, TAB Magnesium Hydroxide* (Milk Of Magnesia*) 400 Mg/5 Ml Oral.susp 30 ML ORAL DAILY, ML Multivitamins* (Multivitamins*) 1 Each Tablet 1 TAB ORAL DAILY, TAB 0 Refills Omeprazole (Omeprazole) 20 Mg Tablet.dr 20 MG GT DAILY, TAB Quetiapine Fumarate* (Seroquel*) 25 Mg Tablet 25 MG ORAL DAILY, TAB Valproate Sodium (Depakene) 250 Mg/5 Ml Solution 250 MG PO BID Discharge Condition Upon Discharge: stable Discharge Disposition Patient was discharged to SNF/Subacute Facility(03) Discharge Diagnoses: Discharge Instructions Discharge Instructions Special Instructions I have been assigned to complete a D/C Summary on this account. I was not involved in the patient management Faiza Angulo NP (Vanchtein) Apr 28, 2017 14:06
--- NOTE | 2017-04-29 02:00 | Discharge Summary 2 SIG ---
DATE OF ADMISSION: 04/24/2017 DATE OF DISCHARGE: 04/26/2017 REASON FOR ADMISSION: 81-year-old male with past medical history of hypertension, chronic obstructive pulmonary disease, diabetes, G-tube, dysphagia. was brought from the assisted facility for G-tube evaluation. G-tube site was leaking. Upon evaluation in ED, the patient was afebrile, in no apparent distress. Abdomen was soft, nondistended with normal bowel sounds. There was surrounding erythema and tenderness on palpation around the G-tube site. G-tube was unable to be removed by the ED provider. Gastrointestinal specialist was consulted, who seen and evaluated the patient and removed the G-tube without complication. Laboratory workup was unremarkable. The patient was given IV fluids and antibiotics for possible cellulitis. The patient was admitted for further management with diagnosis for malfunctioning of G-tube and cellulitis at the gastrostomy tube site. HOSPITAL STAY: The patient was admitted. The patient was initially on the IV fluids while NPO and awaiting for G-tube. GI followed the patient. GI scheduled the patient for EGD with biopsy and G-tube replacement. The patient subsequently undergone procedure on 04/26/2017. G-tube was successfully replaced. Findings of EGD included severe diffuse gastritis with question of possible portal hypertensive gastropathy, status post biopsy. Biopsy results still pending. GI recommended follow up biopsy results and treat accordingly. While in the hospital, the patient was receiving antibiotics for cellulitis. Pain management addressed. Bowel regimen instituted. DVT and GI prophylaxis provided. Home medications were resumed. Blood sugar was managed with sliding scale of insulin and remained stable. Blood pressure was stable. Tube feeding resumed with strict aspiration precaution. According to manager heart , the patient had a high nutritional risk. Recommended tube feeding type and goal for G-tube feeding, which started after replacement of G-tube, with gradual increase of rate to goal rate. The patient was started on Jian twice a day to help with wound healing. The wound care nurse seen the patient for sacral coccyx decubitus stage I extending to left and right buttock. Wound care provided as per wound care nurse recommendation. Continue wound care at the assisted facility. Renal parameters and electrolytes were closely monitored, remained stable. Patient was able to tolerate feeding. The patient was stable for discharge back to assisted facility. FINAL DIAGNOSES: 1. Dislodgement of the percutaneous endoscopic gastrostomy tube. 2. Dehydration. 3. Moderate protein-calorie malnutrition. 4. Status post esophagogastroduodenoscopy with biopsy and gastrostomy tube replacement. 5. Diffuse gastritis. 6. Psychiatric disorder. 7. Coronary artery disease, stable. 8. Cellulitis of the gastrostomy tube site. DISCHARGE MEDICATIONS: See medication reconciliation list. DISCHARGE INSTRUCTIONS: The patient was discharged to assisted facility. FOLLOWUP: Follow up with medical doctor at the facility. Leslie Funes M.D. I have been assigned to dictate discharge summary on this account and I was not involved in the patient's management. Faiza WhippleN[facility]one Hospital — Long IslandAlf N.PSamir DR: ИВАН JOB#: [id number] CC: JOSE
== END 2017-04-26 16:00 | DRG 327 ==
LOC: EDBD 12:15 → EMR 12:40 → 4E 13:32 → EDBEDREQ 14:09 → 4E 21:57
PROC: 0DP64UZ Removal of Feeding Device from Stomach, Percutaneous Endoscopic Approach (ICD-10-PCS; principal; 2017-04-26 10:23)
PROC: 0DH68UZ Insertion of Feeding Device into Stomach, Via Natural or Artificial Opening Endoscopic (ICD-10-PCS; principal; 2017-04-26 10:23)
PROC: 0DB68ZX Excision of Stomach, Via Natural or Artificial Opening Endoscopic, Diagnostic (ICD-10-PCS; principal; 2017-04-26 10:23)
DX: K94.23 Gastrostomy malfunction (principal); E44.0 Moderate protein-calorie malnutrition; E11.9 Type 2 diabetes mellitus without complications; E86.0 Dehydration; D64.9 Anemia, unspecified; F99 Mental disorder, not otherwise specified; K94.29 Other complications of gastrostomy; Y83.3 Surgical operation with formation of external stoma as the cause of abnormal reaction of the patient, or of later complication, without mention of misadventure at the time of the procedure; I25.10 Atherosclerotic heart disease of native coronary artery without angina pectoris; Z66 Do not resuscitate; K29.70 Gastritis, unspecified, without bleeding
CPT/HCPCS: 36415; 80053; 82962; 83036; 85025; 85610; 85730; 87081; 94003; 94150; 99285; J1815; S5561

== ENCOUNTER 2017-06-12 08:16 | Inpatient (IN) | payer MEDICARE, MEDICAID ==
[~2017-06-12] VITALS: Ht 157.5 cm; Wt 59.4 kg
[~2017-06-12 08:16] MED LIST changes: +COGENTIN1 MG ORAL; +DEPAKENE250 MG/5 M PO; +DULCOLAX10 MG RC; +GLUCAGON W/DILUE1 MG IM; +GLUCERNA 1.5 C237 ML GT; +ISOSORBIDE MONO30 M1 PO; +OMEPRAZOLE20 M3 GT
--- NOTE | 2017-06-12 08:51 | Emergency Room Report ---
History of Present Illness General Chief Complaint: General Complaint Source: Patient, Medical Record Present Illness HPI 82-year-old male sent from residential for alleged episode of coughing up blood Endorses one to one day of coughing and one episode of coughing up blood. Currently not coughing ER, there is some dried blood around his mouth She otherwise denies complaints however has history of schizophrenia and and per review of nursing records patient has some baseline confusion. History of present illness otherwise limited due to extreme of age, schizophrenia, and baseline confusion. Allergies: Coded Allergies: No Known Allergies (Unverified , 04/15/16) Patient History Past Medical History: other - Anemia, schizophenia, Gtube dependent Past Surgical History: other - Gtube Pertinent Family History: none Social History: Denies: smoking, alcohol use, drug use Immunizations: UTD Reviewed Nursing Documentation: PMH: Agreed, PSxH: Agreed Nursing Documentation-PMH Past Medical History: No History, Except For Hx Cardiac Problems: Yes Hx Hypertension: Yes Hx COPD: Yes Hx Diabetes: Yes Hx Cancer: No Hx Gastrointestinal Problems: Yes - G-TUBE Hx Neurological Problems: Yes Hx Dementia: Yes Review of Systems All Other Systems: negative except mentioned in HPI Physical Exam Vital Signs Date Time Temp Pulse Resp B/P (MAP) Pulse Ox O2 Delivery O2 Flow Rate FiO2 06/12/17 08:17 98.1 48 18 122/58 97 Room Air Sp02 EP Interpretation: reviewed, normal General Appearance: normal inspection, well appearing, no apparent distress, alert, GCS 15, non-toxic Head: normocephalic, atraumatic Eyes: bilateral eye PERRL, bilateral eye EOMI ENT: normal ENT inspection, hearing grossly normal, normal pharynx, no angioedema, normal voice, TMs + canals normal, uvula midline, moist mucus membranes, other - scattered amounts of dried blood around mouth Neck: normal inspection, full range of motion, supple, thyroid normal, no meningismus, no bony tend Respiratory: normal inspection, lungs clear, normal breath sounds, no rhonchi, no respiratory distress, no retraction, no accessory muscle use, no wheezing, speaking full sentences Cardiovascular #1: regular rate, rhythm, no edema, no JVD, normal capillary refill Gastrointestinal: normal inspection, normal bowel sounds, non tender, soft, no mass, no peritonitis, non-distended, no guarding, no hernia, no pulsatile mass Genitourinary: no CVA tenderness Musculoskeletal: normal inspection, back normal, normal range of motion, no calf tenderness, pelvis stable, Laura's Sign negative Neurologic: normal inspection, alert, oriented x3, responsive, urology surgeon III-XII nml as tested, motor strength/tone normal, cerebellar normal, normal gait, speech normal Psychiatric: normal inspection, judgement/insight normal, mood/affect normal, no suicidal/homicidal ideation, no delusions Skin: normal inspection, normal color, no rash Lymphatic: normal inspection, no adenopathy Medical Decision Making Diagnostic Impression: Primary Impression: Hemoptysis Additional Impression: Influenza A ER Course VSS, afebrile Labs: No leuks. CMP normal. CXR: chronic insterstial disease ++ influenza A positive Was given tamiflu thru Gtube Not septic appearing No active upper airway hemorrhage Endorsed to Dr Funes for med/surg admit 951am EKG Diagnostic Results Rate: bradycardiac Rhythm: NSR ST Segments: no acute changes ASA given to the pt in ED: No Rhythm Strip Diag. Results EP Interpretation: yes Rate: 50 Rhythm: NSR, no PVC's, no ectopy Chest X-Ray Diagnostic Results Chest X-Ray Diagnostic Results : Chest X-Ray Ordered: Yes # of Views/Limited/Complete: 1 View Indication: Other - cough EP Interpretation: Yes Interpretation: no consolidation, no effusion, no pneumothorax, other - chronic insterstial disease Last Vital Signs Date Time Temp Pulse Resp B/P (MAP) Pulse Ox O2 Delivery O2 Flow Rate FiO2 06/12/17 08:17 98.1 48 18 122/58 97 Room Air Status: improved Disposition: ER SNF Referrals: Leslie Funes MD (PCP) ODIN MADISON M.D. Jun 12, 2017 08:51
[2017-06-12] MEDS ORDERED: BUSPAR10 MG GT (08:58)
[2017-06-12 09:07] VITALS: BP 119/53
[2017-06-12 09:22] LABS: ANION GAP 6 mmol/L (5-15); BLOOD UREA NITROGEN 41 mg/dL (7-18); CALCIUM 10.8 MG/DL (8.5-10.1); CARBON DIOXIDE 30 MMOL/L (21-32); CHLORIDE 101 MMOL/L (98-107); CREATININE 1.1 MG/DL (0.55-1.30); POTASSIUM 4.8 MMOL/L (3.5-5.1); SODIUM 137 MMOL/L (136-145)
--- NOTE | 2017-06-12 09:22 | Diagnostic Imaging Report ---
Indication: Shortness of breath Technique: XRAY Chest 1v. Comparison: 02/26/2017 Findings: The cardiomediastinal silhouette is stable. There are no acute infiltrates. Impression: No acute abnormality. .
[2017-06-12 09:27] LABS: ALANINE AMINOTRANSFERASE 10 U/L (12-78); ALBUMIN 3.4 G/DL (3.4-5.0); ALBUMIN/GLOBULIN RATIO 0.7 (1.0-2.7); ALKALINE PHOSPHATASE 76 U/L (46-116); ASPARTATE AMINO TRANSFERASE 18 U/L (15-37); BASOPHILS % (AUTO) 0.6 % (0.0-2.0); BILIRUBIN,TOTAL 0.4 MG/DL (0.2-1.0); EOSINOPHILS % (AUTO) 0.6 % (0.0-3.0); HEMATOCRIT 40.7 % (42.0-52.0); HEMOGLOBIN 13.6 G/DL (14.2-18.0); LYMPHOCYTES % (AUTO) 15.8 % (20.0-45.0); MEAN CORPUSCULAR VOLUME 98 FL (80-99); MONOCYTES % (AUTO) 9.7 % (1.0-10.0); NEUTROPHILS % (AUTO) 73.4 % (45.0-75.0); PLATELET COUNT 229 K/UL (150-450); RED BLOOD COUNT 4.14 M/UL (4.70-6.10); RED CELL DISTRIBUTION WIDTH 12.8 % (11.6-14.8); WHITE BLOOD COUNT 5.5 K/UL (4.8-10.8)
[2017-06-12] MEDS ORDERED: Oseltamivir 75mg cap ORAL SCH (10:00)
[2017-06-12 10:59] VITALS: BP 137/62
[2017-06-12 12:00] VITALS: BP 134/64
--- NOTE | 2017-06-12 13:17 | Consultation ---
History of Present Illness General Date patient seen: Jun 12, 2017 Time patient seen: 12:30 Chief Complaint: General Complaint Referring physician: dr Ramos Reason for Consultation: inpatient management Present Illness HPI 82-year-old male with PMH of COPD, dementia, HTN, DM, dysphagia, G tube, paranoid schizophrenia, [facility] of [facility]sis No further hemoptysis in ED Workup in ED revealed stable BP, pulse ox, no fever, but bradycardia: ECG with SB- 50 CXR with chronic interstitial disease influenza screen was positive for type A no leukocytosis stable HH stable lytes patient was admitted for further management patient DNR/DNI status Allergies: Coded Allergies: No Known Allergies (Unverified , 04/15/16) Medication History Scheduled Benztropine Mesylate (Cogentin 1mg*), 1 MG ORAL EVERY 8 HOURS, (Reported) Benztropine Mesylate* (Benztropine Mesylate*), 1 MG PO BID, (Reported) Buspirone Hcl* (Buspar*), 5 MG GT THREE TIMES A DAY, (Reported) Docusate Sodium* (Docusate Sodium*), 100 MG ORAL TWICE A DAY, (Reported) Docusate Sodium* (Colace*), 100 MG GT BID, (Reported) Insulin Detemir (Levemir Flexpen), 5 SUBQ BEDTIME, (Reported) Isosorbide Mononitrate (Isosorbide Mononitrate), 30 MG PO DAILY, (Reported) Isosorbide Mononitrate (Isosorbide Mononitrate Er), 30 MG PO DAILY, (Reported) Magnesium Hydroxide* (Milk Of Magnesia*), 30 ML ORAL DAILY, (Reported) Multivitamins* (Multivitamins*), 1 TAB ORAL DAILY, (Reported) Omeprazole (Omeprazole), 20 MG GT DAILY, (Reported) Potassium Chloride (Potassium Chloride), 40 MEQ GT DAILY, (Reported) Quetiapine Fumarate* (Seroquel*), 25 MG ORAL DAILY, (Reported) Sertraline Hcl* (Zoloft*), 25 MG ORAL DAILY, (Reported) Valproate Sodium (Depakene), 250 MG PO BID, (Reported) Scheduled PRN Acetaminophen (Acetaminophen), 650 MG ORAL Q8H PRN for Prn Headache/Temp > 101, (Reported) Bisacodyl (Dulcolax), 10 MG RC DAILY PRN for Constipation, (Reported) Codeine/Promethazine Hcl* (Promethazine-Codeine Syrup*), 5 ML ORAL Q8HR PRN for For Cough Glucagon (Glucagen), 1 MG IM PRN PRN for Hypoglycemia, (Reported) Lorazepam* (Ativan*), 1 MG GT Q8HR PRN for Agitation, (Reported) Miscellaneous Medications Bisacodyl (Dulcolax), 10 MG RC, (Reported) Divalproex Sodium (Depakote), 10 ML GT, (Reported) Isosorbide (Isosorbide), 30 MG GT, (Reported) Nut.tx.gluc.intoler,Lac-Fr,Soy (Glucerna 1.5 Saúl), 237 ML GT, (Reported) Patient History Healthcare decision maker Resuscitation status Advanced Directive on File Review of Systems ROS Narrative unable to obtain due to dementia Physical Exam General Appearance: no apparent distress Lines, tubes and drains: peripheral HEENT: normocephalic, atraumatic, anicteric, mucous membranes moist, other - SMACKING LIPS frequently Neck: non-tender, supple Respiratory/Chest: chest wall non-tender, lungs clear, no accessory muscle use Cardiovascular/Chest: regular rhythm - SB on tele , no JVD, bradycardia Abdomen: normal bowel sounds, non tender, soft Extremities: non-tender, no calf tenderness, no edema Skin Exam: warm/dry, no diaphoresis Neurologic: abnormal gait, alert - demented , responsive, disoriented Musculoskeletal: atrophy - ble Last 24 Hour Vital Signs Date Time Temp Pulse Resp B/P (MAP) Pulse Ox O2 Delivery O2 Flow Rate FiO2 06/12/17 11:12 48 21 137/62 100 Room Air 06/12/17 10:59 99.0 48 21 137/62 100 Room Air 06/12/17 09:07 99.0 45 16 119/53 100 Room Air 06/12/17 08:17 98.1 48 18 122/58 97 Room Air Laboratory Tests Test 06/12/17 08:45 White Blood Count 5.5 K/UL (4.8-10.8) Red Blood Count 4.14 M/UL (4.70-6.10) L Hemoglobin 13.6 G/DL (14.2-18.0) L Hematocrit 40.7 % (42.0-52.0) L Mean Corpuscular Volume 98 FL (80-99) Mean Corpuscular Hemoglobin 33.0 PG (27.0-31.0) H Mean Corpuscular Hemoglobin Concent 33.5 G/DL (32.0-36.0) Red Cell Distribution Width 12.8 % (11.6-14.8) Platelet Count 229 K/UL (150-450) Mean Platelet Volume 6.3 FL (6.5-10.1) L Neutrophils (%) (Auto) 73.4 % (45.0-75.0) Lymphocytes (%) (Auto) 15.8 % (20.0-45.0) L Monocytes (%) (Auto) 9.7 % (1.0-10.0) Eosinophils (%) (Auto) 0.6 % (0.0-3.0) Basophils (%) (Auto) 0.6 % (0.0-2.0) Sodium Level 137 MMOL/L (136-145) Potassium Level 4.8 MMOL/L (3.5-5.1) Chloride Level 101 MMOL/L (98-107) Carbon Dioxide Level 30 MMOL/L (21-32) Anion Gap 6 mmol/L (5-15) Blood Urea Nitrogen 41 mg/dL (7-18) H Creatinine 1.1 MG/DL (0.55-1.30) Estimat Glomerular Filtration Rate mL/min (>60) Glucose Level 107 MG/DL (74-106) H Calcium Level 10.8 MG/DL (8.5-10.1) H Total Bilirubin 0.4 MG/DL (0.2-1.0) Aspartate Amino Transf (AST/SGOT) 18 U/L (15-37) Alanine Aminotransferase (ALT/SGPT) 10 U/L (12-78) L Alkaline Phosphatase 76 U/L (46-116) Total Protein 8.2 G/DL (6.4-8.2) Albumin 3.4 G/DL (3.4-5.0) Globulin 4.8 g/dL Albumin/Globulin Ratio 0.7 (1.0-2.7) L Microbiology Date/Time Source Procedure Growth Status 06/12/17 09:10 Nasal Nares Influenza Types A,B Antigen (MALINA) - Final Complete Height (Feet): 5 Height (Inches): 2.00 Weight (Pounds): 120 Assessment/Plan Assessment/Plan ASSESSMENT influenza type A COPD bronchitis (doubt PNA) episode of hemoptysis bradycardia Dysphagia, G tube DM HTN paranoid schizophrenia PLAN OF CARE MS floor droplet precautions Tamiflu O2 HHN prn fup with CXR in terms of hemoptysis- single episode, no findings on CXR to account for it; likely from COPD /forceful cough will observe for now if recurs, will proceed with further workup empiric antibiotics cardio eval for bradycardia -per PMD BS management with SS of inulin BP monitoring resume psych meds , psych eval asp precautions, GT feeding DVT GI prophylaxis Bowel regimen case discussed and evaluated by supervising physician Kev ([facility]),Faiza SANCHEZ Jun 12, 2017 13:17
[2017-06-12] MEDS ORDERED: Promethazine/Codeine 5ml UD ORAL PRN (13:30)
[2017-06-12] MEDS ORDERED: Miralax 17gm pkt ORAL PRN (13:30)
[2017-06-12] MEDS ORDERED: Albuterol/Ipratropium 3ml neb HHN PRN (13:30)
[2017-06-12] MEDS ORDERED: Acetaminophen 650mg/20.3ml GT PRN (13:30)
[2017-06-12] MEDS ORDERED: Acetaminophen 650mg/20.3ml ORAL PRN (13:30)
[2017-06-12] MEDS ORDERED: Mylanta II UD 30ml ORAL PRN (13:30)
[2017-06-12 17:20] VITALS: BP 135/60
[2017-06-12] MEDS: BusPIRone 10mg Tab GT SCH (17:53)
[2017-06-12] MEDS: Benztropine 1mg tab GT SCH (17:53)
[2017-06-12] MEDS: Docusate 100mg/10ml Liq ORAL SCH (17:53)
[2017-06-12] MEDS: NovoLOG Insulin Flexpen SUBQ SCH ×2 (17:59→21:02)
[2017-06-12 20:00] VITALS: BP 115/58
[2017-06-12] MEDS: Heparin 5000 units/ml inj SUBQ SCH (21:02)
[2017-06-13] VITALS: BP 126/57
[2017-06-13 04:00] VITALS: BP 117/55
[2017-06-13] MEDS: NovoLOG Insulin Flexpen SUBQ SCH ×3 (06:07→17:26)
[2017-06-13 08:00] VITALS: BP 122/49
--- NOTE | 2017-06-13 08:05 | History & Physical ---
History and Physical History & Physicial seen and examined. Full Dict in progress Leslie Funes MD Jun 13, 2017 08:05
--- NOTE | 2017-06-13 08:08 | General Progress Note ---
Assessment/Plan Status: stable Assessment/Plan 1- Acute Hemoptysis 2- Influenza A 3- Psych 4- CAD 5- DM- status unknown 6- PEG-T feeding Plan: Pulmonary consult pending Chest CT. Subjective ROS Limited/Unobtainable: No - appears comfortable. AOX2 Allergies: Coded Allergies: No Known Allergies (Unverified , 04/15/16) Objective Last 24 Hour Vital Signs Date Time Temp Pulse Resp B/P (MAP) Pulse Ox O2 Delivery O2 Flow Rate FiO2 06/13/17 04:00 98.2 49 18 117/55 97 Room Air 06/13/17 02:22 52 16 Room Air 21 06/13/17 00:00 98.4 50 18 126/57 Room Air 06/12/17 20:00 97.8 49 18 115/58 98 Room Air 06/12/17 17:20 98.0 50 20 135/60 95 Room Air 06/12/17 12:00 99.2 49 20 134/64 100 Room Air 06/12/17 11:12 48 21 137/62 100 Room Air 06/12/17 10:59 99.0 48 21 137/62 100 Room Air 06/12/17 09:07 99.0 45 16 119/53 100 Room Air 06/12/17 08:17 98.1 48 18 122/58 97 Room Air Intake and Output 06/12/17 06/13/17 19:00 07:00 Intake Total 360 ml 570 ml Balance 360 ml 570 ml Intake Free Water 180 ml 240 ml Tube Feeding 180 ml 330 ml # Voids 4 4 # Bowel Movements 1 1 Laboratory Tests 06/12/17 08:45: White Blood Count 5.5, Red Blood Count 4.14L, Hemoglobin 13.6L, Hematocrit 40.7L , Mean Corpuscular Volume 98, Mean Corpuscular Hemoglobin 33.0H, Mean Corpuscular Hemoglobin Concent 33.5, Red Cell Distribution Width 12.8, Platelet Count 229, Mean Platelet Volume 6.3L, Neutrophils (%) (Auto) 73.4, Lymphocytes ( %) (Auto) 15.8L, Monocytes (%) (Auto) 9.7, Eosinophils (%) (Auto) 0.6, Basophils (%) (Auto) 0.6, Sodium Level 137, Potassium Level 4.8, Chloride Level 101, Carbon Dioxide Level 30, Anion Gap 6, Blood Urea Nitrogen 41H, Creatinine 1.1, Estimat Glomerular Filtration Rate , Glucose Level 107H, Calcium Level 10.8H, Total Bilirubin 0.4, Aspartate Amino Transf (AST/SGOT) 18, Alanine Aminotransferase (ALT/SGPT) 10L, Alkaline Phosphatase 76, Total Protein 8.2, Albumin 3.4, Globulin 4.8, Albumin/Globulin Ratio 0.7L 06/13/17 06:21: Sodium Level [Pending], Potassium Level [Pending], Chloride Level [Pending], Carbon Dioxide Level [Pending], Blood Urea Nitrogen [Pending], Creatinine [ Pending], Estimat Glomerular Filtration Rate [Pending], Glucose Level [Pending] , Calcium Level [Pending], Hemoglobin A1c [Pending], Magnesium Level [Pending], Triglycerides Level [Pending], Cholesterol Level [Pending], LDL Cholesterol [ Pending], HDL Cholesterol [Pending], Cholesterol/HDL Ratio [Pending], Thyroid Stimulating Hormone (TSH) [Pending] Height (Feet): 5 Height (Inches): 2.00 Weight (Pounds): 131 General Appearance: no apparent distress EENT: PERRL/EOMI Neck: supple Cardiovascular: normal rate Respiratory/Chest: lungs clear Abdomen: other - PEG inplace Extremities: non-tender Neurologic: promotions officer II-XII grossly normal, disoriented Leslie Funes MD Jun 13, 2017 08:08
[2017-06-13] MEDS: Docusate 100mg/10ml Liq ORAL SCH ×2 (08:19→17:25)
[2017-06-13] MEDS: Benztropine 1mg tab GT SCH (08:19)
[2017-06-13] MEDS: Heparin 5000 units/ml inj SUBQ SCH ×2 (08:20→21:16)
[2017-06-13] MEDS: BusPIRone 10mg Tab GT SCH (08:20)
[2017-06-13 08:38] LABS: ANION GAP 8 mmol/L (5-15); BLOOD UREA NITROGEN 31 mg/dL (7-18); CALCIUM 10.6 MG/DL (8.5-10.1); CARBON DIOXIDE 26 MMOL/L (21-32); CHLORIDE 104 MMOL/L (98-107); CHOLESTEROL 109 MG/DL (< 200); HDL CHOLESTEROL 28 MG/DL (40-60); POTASSIUM 4.4 MMOL/L (3.5-5.1); SODIUM 138 MMOL/L (136-145); TRIGLYCERIDES 151 MG/DL (30-150)
[2017-06-13] MEDS ORDERED: Imdur 30mg tab ORAL SCH (09:00)
[2017-06-13] MEDS ORDERED: Sertraline 50mg tab ORAL SCH (09:00)
[2017-06-13 12:00] VITALS: BP 108/54
[2017-06-13] MEDS ORDERED: BusPIRone 5mg Tab ORAL SCH (13:00)
--- NOTE | 2017-06-13 14:48 | Pulmonology Progress Note ---
Assessment/Plan Assessment/Plan ASSESSMENT influenza type A COPD bronchitis (doubt PNA) episode of hemoptysis bradycardia Dysphagia, G tube DM HTN paranoid schizophrenia PLAN OF CARE MS floor droplet precautions Tamiflu O2 HHN prn in terms of hemoptysis- single episode, no findings on CXR to account for it; likely from COPD /forceful cough will get CT chest empiric antibiotics cardio eval for bradycardia -per PMD BS management with SS of inulin BP monitoring resume psych meds , psych eval asp precautions, GT feeding DVT GI prophylaxis Bowel regimen DNR/DNI status case discussed and evaluated by supervising physician Subjective Allergies: Coded Allergies: No Known Allergies (Unverified , 04/15/16) Subjective no hemoptysis, occasional dry cough remains bradycardic no dizziness, no diaphoreses, no palpitations was SB on tele Objective Last 24 Hour Vital Signs Date Time Temp Pulse Resp B/P (MAP) Pulse Ox O2 Delivery O2 Flow Rate FiO2 06/13/17 12:00 97.5 46 18 108/54 99 06/13/17 08:19 117/55 06/13/17 08:00 97.3 46 18 122/49 100 06/13/17 04:00 98.2 49 18 117/55 97 Room Air 06/13/17 02:22 52 16 Room Air 21 06/13/17 00:00 98.4 50 18 126/57 Room Air 06/12/17 20:00 97.8 49 18 115/58 98 Room Air 06/12/17 17:20 98.0 50 20 135/60 95 Room Air Intake and Output 06/12/17 06/13/17 19:00 07:00 Intake Total 360 ml 600 ml Balance 360 ml 600 ml Intake Free Water 180 ml 240 ml Tube Feeding 180 ml 360 ml # Voids 4 4 # Bowel Movements 1 1 Objective General Appearance: no apparent distress Lines, tubes and drains: peripheral HEENT: normocephalic, atraumatic, anicteric, mucous membranes moist, other - SMACKING LIPS frequently Neck: non-tender, supple Respiratory/Chest: chest wall non-tender, lungs clear, no accessory muscle use Cardiovascular/Chest: bradycardia, no JVD, bradycardia Abdomen: normal bowel sounds, non tender, soft Extremities: non-tender, no calf tenderness, no edema Skin Exam: warm/dry, no diaphoresis Neurologic: abnormal gait, alert - demented , responsive, disoriented Musculoskeletal: atrophy - ble Microbiology Date/Time Source Procedure Growth Status 06/12/17 09:10 Nasal Nares Influenza Types A,B Antigen (MALINA) - Final Complete Laboratory Tests 06/13/17 06:21: Sodium Level 138, Potassium Level 4.4, Chloride Level 104, Carbon Dioxide Level 26, Anion Gap 8, Blood Urea Nitrogen 31H, Creatinine 1.0, Estimat Glomerular Filtration Rate , Glucose Level 117H, Hemoglobin A1c 5.1, Calcium Level 10.6H, Magnesium Level 2.2, Triglycerides Level 151H, Cholesterol Level 109, LDL Cholesterol 66, HDL Cholesterol 28L, Cholesterol/HDL Ratio 3.9, Thyroid Stimulating Hormone (TSH) 2.119 Current Medications Medications (Trade) Dose Ordered Sig/Carito Route PRN Reason Start Time Stop Time Status Last Admin Dose Admin Acetaminophen (Tylenol) 650 mg Q4H PRN GT Prn Headache/Temp > 101 06/12/17 13:30 07/12/17 13:29 Al Hydroxide/Mg Hydroxide (Mylanta II) 30 ml Q6H PRN ORAL dyspepsia 06/12/17 13:30 07/12/17 13:29 Albuterol/ Ipratropium (Albuterol/ Ipratropium) 3 ml Q4H PRN HHN Shortness of Breath 06/12/17 13:30 06/17/17 13:29 Benztropine Mesylate (Cogentin) 1 mg BID GT 06/12/17 18:00 07/12/17 17:59 06/13/17 08:19 Bisacodyl (Dulcolax) 10 mg DAILY PRN RECTAL Constipation 06/12/17 13:30 07/12/17 13:29 Buspirone HCl (Buspar) 5 mg THREE TIMES A DAY ORAL 06/13/17 13:00 07/12/17 17:59 06/13/17 13:28 Dextrose (Dextrose 50%) STAT PRN IV Hypoglycemia 06/12/17 13:30 07/12/17 13:29 Docusate Sodium (Colace) 100 mg BID ORAL 06/12/17 18:00 07/12/17 17:59 06/13/17 08:19 Doxycycline Monohydrate (Vibramycin) 100 mg EVERY 12 HOURS ORAL 06/12/17 18:00 06/19/17 17:59 06/13/17 08:19 Fluocinonide (Lidex) 1 applic DAILY TOPIC 06/13/17 16:00 07/13/17 15:59 Heparin Sodium (Porcine) (Heparin 5000 units/ml) 5,000 units EVERY 12 HOURS SUBQ 06/12/17 21:00 07/12/17 20:59 06/13/17 08:20 Insulin Aspart (NovoLOG) Q6HR SUBQ 06/12/17 18:00 07/12/17 17:59 06/13/17 13:03 Isosorbide Dinitrate (Isordil) 10 mg TID ORAL 06/14/17 09:00 07/14/17 08:59 Multivitamins (Multivitamins) 1 tab DAILY ORAL 06/14/17 09:00 07/14/17 08:59 Oseltamivir Phosphate (Tamiflu) 30 mg TWICE A DAY ORAL 06/12/17 18:00 06/16/17 18:01 06/13/17 08:19 Polyethylene Glycol (Miralax) 17 gm HSPRN PRN ORAL Constipation 06/12/17 13:30 07/12/17 13:29 Promethazine HCl/ Codeine (Phenergan with Codeine) 5 ml Q8H PRN ORAL For Cough 06/12/17 13:30 07/12/17 13:29 Quetiapine Fumarate (SEROquel) 25 mg DAILY ORAL 06/13/17 09:00 07/13/17 08:59 06/13/17 08:19 K[facility] WhippleJames [facility]. Peters Va [facility] CenterFaiza Milner NP Jun 13, 2017 14:48
--- NOTE | 2017-06-13 15:30 | History and Physical Report ---
DATE OF ADMISSION: 06/12/2017 SOURCE OF INFORMATION: The patient and EMR. HISTORY OF PRESENT ILLNESS: The patient is an 82-year-old white male. The patient is currently resident of a intermediate facility. The patient has been transferred regarding reported one time incident of coughing up blood. At the time of evaluation, the patient does not have any chest pain or shortness of breath. Does not have any recurrence of hemoptysis. No nausea. No vomitus. No diarrhea. No constipation. Initial vital signs in the hospital shows a pulse rate ranging from 40 to 50, otherwise stable vital signs. REVIEW OF SYSTEMS: All 12 elements of review of systems reviewed. Pertinent negative and positive are reviewed with the patient as detailed above. ALLERGIES: NKDA. SOCIAL HISTORY: The patient is currently resident of a intermediate facility. No documented history of illicit drug abuse, smoking, or alcohol abuse noted. MEDICATIONS: Current hospital medications including, but not limited to BuSpar, doxycycline 100 mg q.12 hours, Imdur, Tamiflu, and Seroquel. FAMILY HISTORY: Reviewed and noncontributory. PHYSICAL EXAMINATION: VITAL SIGNS: Systolic blood pressure 130/60, temperature 98.2, pulse oximetry 98% on room air, and pulse rate 45-50. HEAD AND NECK: Atraumatic and normocephalic. CHEST: Clear to auscultation. HEART: S1 and S2. Sinus bradycardic. ABDOMEN: Shows a PEG tube in place. No discharges. No tenderness. NEUROLOGIC: The patient is awake, alert, and oriented x2. LABORATORY DATA: Dated 06/12/2017 shows WBCs 5.5, hemoglobin 13.6, and platelet count of 229. Sodium 137, potassium 4.8, BUN 41, creatinine 1.1, and calcium of 10.8. ASSESSMENT AND PLAN: 1. Acute episodes of hemoptysis. 2. Positive for influenza type A. 3. Dementia. 4. Percutaneous endoscopic gastrostomy tube feeding. 5. Coronary artery disease - no evidence of active acute disease. 6. Sinus bradycardia - similar to prior admission - asymptomatic. 7. Psychiatric disorder. 8. Gastrointestinal and deep vein thrombosis prophylaxes. PLAN OF CARE: Continue monitoring the patient for the hemoptysis. The patient's vitals stable. Current pulmonary care. We will consult Pulmonary, Dr. Goncalves. Leslie Funes M.D. DR: SAGRARIO JOB#: [id number] CC: JOSE
[2017-06-13] MEDS ORDERED: FLUOCINONIDE 0.05% TOPIC SCH (16:00)
[2017-06-13 16:15] VITALS: BP 117/77
[2017-06-13] MEDS: Fluocinonide 15gm Cream TOPIC SCH (17:25)
[2017-06-13 20:00] VITALS: BP 117/56
[2017-06-14] VITALS: BP 128/57
[2017-06-14 04:00] VITALS: BP 114/56
[2017-06-14] MEDS: NovoLOG Insulin Flexpen SUBQ SCH ×4 (06:00→17:59)
[2017-06-14 07:22] VITALS: BP 136/50
[2017-06-14] MEDS: Docusate 100mg/10ml Liq ORAL SCH ×2 (08:33→18:02)
[2017-06-14] MEDS: Heparin 5000 units/ml inj SUBQ SCH ×2 (08:33→21:59)
--- NOTE | 2017-06-14 11:21 | General Progress Note ---
Assessment/Plan Status: stable Assessment/Plan 1. Acute episodes of hemoptysis. 2. Positive for influenza type A. 3. Dementia. 4. Percutaneous endoscopic gastrostomy tube feeding. 5. Coronary artery disease - no evidence of active acute disease. 6. Sinus bradycardia - similar to prior admission - asymptomatic. 7. Psychiatric disorder. 8. Gastrointestinal and deep vein thrombosis prophylaxes. Plan: Pulmonary consult note is reviewed GI to replace the PEG Subjective Allergies: Coded Allergies: No Known Allergies (Unverified , 04/15/16) Objective Last 24 Hour Vital Signs Date Time Temp Pulse Resp B/P (MAP) Pulse Ox O2 Delivery O2 Flow Rate FiO2 06/14/17 08:33 136/50 06/14/17 07:22 97.2 79 20 136/50 99 Room Air 06/14/17 04:00 97.8 57 21 114/56 96 06/14/17 00:00 98.3 47 19 128/57 97 Room Air 06/13/17 20:00 97.7 48 20 117/56 96 Room Air 06/13/17 16:15 97.6 77 21 117/77 97 Room Air 06/13/17 12:00 97.5 46 18 108/54 99 Intake and Output 06/13/17 06/14/17 19:00 07:00 Intake Total 540 ml 120 ml Balance 540 ml 120 ml Intake Free Water 180 ml 60 ml Tube Feeding 360 ml 60 ml # Voids 3 5 # Bowel Movements 1 Height (Feet): 5 Height (Inches): 2.00 Weight (Pounds): 131 General Appearance: no apparent distress EENT: PERRL/EOMI Neck: supple Cardiovascular: normal rate Respiratory/Chest: lungs clear Abdomen: soft, other - Dislodged peg t Extremities: other - atrophied musculature Neurologic: flare maker II-XII grossly normal Leslie Funes MD Jun 14, 2017 11:21
[2017-06-14 12:04] VITALS: BP 114/53
--- NOTE | 2017-06-14 13:24 | Diagnostic Imaging Report ---
Indication: Gastrostomy tube placement Technique: XRAY Abdomen 1v Comparison: None Findings: Study performed after injection of contrast via gastrostomy tube. There is contrast opacification of the gastric fundus and proximal small bowel. No extravasation of contrast is identified. Bowel gas pattern is nonspecific. Imaged lung bases grossly clear. Impression: Gastrostomy tube tip in the stomach.
[2017-06-14 16:00] VITALS: BP 116/55
--- NOTE | 2017-06-14 16:16 | GI Initial Consult Note ---
BettyRosio Cr N.P. 06/14/17 1616: History of Present Illness General Date patient seen: Jun 14, 2017 Time patient seen: 12:00 Reason for Hospitalization: General Complaint Referring physician: dr Ramos Reason for Consultation: GT REPLACEMENT Present Illness HPI 82-year-old male sent from [facility] for alleged episode of coughing up blood Endorses one to one day of coughing and one episode of coughing up blood. Currently not coughing ER, there is some dried blood around his mouth She otherwise denies complaints however has history of schizophrenia and and per review of nursing records patient has some baseline confusion. History of present illness otherwise limited due to extreme of age, schizophrenia, and baseline confusion. GI consulted for GT replacement. HPI noted above. Cardenas in place of GT. No other complaint noted. Patient is alert and able to answer and follow commands. GT replaced at bedside. KUB ordered for confirmation. Presents today with mild anemia. Home Meds Active Scripts Codeine/Promethazine Hcl* (PROMETHAZINE-CODEINE SYRUP*) 118 Ml Syrup, 5 ML ORAL Q8HR Y for For Cough for 5 Days, ML 0 Refills Prov:SOFÍA JUNE D.O. 02/26/17 Reported Medications Oseltamivir Phosphate (TAMIFLU) 30 Mg Capsule, 30 MG ORAL TWICE A DAY, CAP 06/15/17 Buspirone Hcl* (BUSPAR*) 10 Mg Tablet, 5 MG GT THREE TIMES A DAY, #15 TAB 0 Refills 06/12/17 Isosorbide Mononitrate (ISOSORBIDE MONONITRATE ER) 30 Mg Tab.er.24h, 30 MG PO DAILY, TAB 04/26/17 Glucagon (Glucagen) 1 Mg/1 Ml Vial, 1 MG IM PRN Y for Hypoglycemia, VIAL 04/26/17 Bisacodyl (DULCOLAX) 10 Mg Supp.rect, 10 MG RC DAILY Y for Constipation, SUPP 04/26/17 Nut.tx.gluc.intoler,Lac-Fr,Soy (Glucerna 1.5 Saúl) 237 Ml Liquid, 237 ML GT, ML 04/24/17 Omeprazole (OMEPRAZOLE) 20 Mg Tablet., 20 MG GT DAILY, TAB 04/24/17 Valproate Sodium (DEPAKENE) 250 Mg/5 Ml Solution, 250 MG PO BID 04/24/17 Benztropine Mesylate (Cogentin 1mg*) 1 Mg Tablet, 1 MG ORAL EVERY 8 HOURS, TAB 04/24/17 Isosorbide (ISOSORBIDE) 1 Gm Powder, 30 MG GT, GM 09/18/16 Bisacodyl (DULCOLAX) 5 Mg Tablet.dr, 10 MG RC, TAB 09/18/16 Docusate Sodium* (COLACE*) 100 Mg Capsule, 100 MG GT BID, CAP 09/18/16 Divalproex Sodium (DEPAKOTE) 125 Mg Tablet.dr, 10 ML GT, TAB 09/18/16 Lorazepam* (ATIVAN*) 0.5 Mg Tablet, 1 MG GT Q8HR Y for Agitation, TAB 09/18/16 Potassium Chloride (Potassium Chloride) 20 Meq/15 Ml Liquid, 40 MEQ GT DAILY for 5 Days, ML 04/21/16 Sertraline Hcl* (ZOLOFT*) 25 Mg Tablet, 25 MG ORAL DAILY, TAB 04/15/16 Acetaminophen (Acetaminophen) 650 Mg/20.3 Ml Solution, 650 MG ORAL Q8H Y for Prn Headache/Temp > 101, ML 0 Refills 04/15/16 Quetiapine Fumarate* (SEROQUEL*) 25 Mg Tablet, 25 MG ORAL DAILY, TAB 04/15/16 Multivitamins* (MULTIVITAMINS*) 1 Each Tablet, 1 TAB ORAL DAILY, TAB 0 Refills 04/15/16 Magnesium Hydroxide* (MILK OF MAGNESIA*) 400 Mg/5 Ml Oral.susp, 30 ML ORAL DAILY , ML 04/15/16 Insulin Detemir (LEVEMIR FLEXPEN) 100 Unit/1 Ml Insuln.pen, 5 SUBQ BEDTIME, # 300 UNITS 0 Refills 04/15/16 Isosorbide Mononitrate (ISOSORBIDE MONONITRATE) 20 Mg Tablet, 30 MG PO DAILY, TAB 04/15/16 Docusate Sodium* (DOCUSATE SODIUM*) 100 Mg Capsule, 100 MG ORAL TWICE A DAY, CAP 04/15/16 Benztropine Mesylate* (BENZTROPINE MESYLATE*) 1 Mg Tablet, 1 MG PO BID, TAB 04/15/16 Med list reviewed/reconciled: Yes Allergies: Coded Allergies: No Known Allergies (Unverified , 04/15/16) Patient History Limited by: medical condition History Provided By: Patient, Medical Record PMH Narrative Past Medical History: other - Anemia, schizophenia, Gtube dependent Past Surgical History: other - Gtube Pertinent Family History: none Social History: Denies: smoking, alcohol use, drug use Immunizations: UTD Reviewed Nursing Documentation: PMH: Agreed, PSxH: Agreed Nursing Documentation-PM Past Medical History: No History, Except For Hx Cardiac Problems: Yes Hx Hypertension: Yes Hx COPD: Yes Hx Diabetes: Yes Hx Cancer: No Hx Gastrointestinal Problems: Yes - G-TUBE Hx Neurological Problems: Yes Hx Dementia: Yes Social History: Denies: smoking, alcohol use, drug use, other Review of Systems All Other Systems: negative except mentioned in HPI Physical Exam Vital Signs Date Time Temp Pulse Resp B/P (MAP) Pulse Ox O2 Delivery O2 Flow Rate FiO2 06/12/17 08:17 98.1 48 18 122/58 97 Room Air 06/13/17 02:22 21 Sp02 EP Interpretation: reviewed, normal General Appearance: well appearing, no apparent distress, alert Head: normocephalic EENT: PERRL/EOMI, normal ENT inspection Neck: supple Respiratory: normal breath sounds, no respiratory distress Cardiovascular: normal rate Gastrointestinal: normal inspection, non tender, soft, normal bowel sounds, non -distended Rectal: deferred Genitourinary: deferred Musculoskeletal: normal inspection, back normal Neurologic: normal inspection, alert, responsive Psychiatric: normal inspection Skin: normal inspection, normal color, no rash, warm/dry, palpation normal, well hydrated Lymphatic: normal inspection, no adenopathy Current Medications Current Medications Medications (Trade) Dose Ordered Sig/Carito Route PRN Reason Start Time Stop Time Status Last Admin Dose Admin Acetaminophen (Tylenol) 650 mg Q4H PRN GT Prn Headache/Temp > 101 06/12/17 13:30 07/12/17 13:29 Al Hydroxide/Mg Hydroxide (Mylanta II) 30 ml Q6H PRN ORAL dyspepsia 06/12/17 13:30 07/12/17 13:29 Albuterol/ Ipratropium (Albuterol/ Ipratropium) 3 ml Q4H PRN HHN Shortness of Breath 06/12/17 13:30 06/17/17 13:29 Bisacodyl (Dulcolax) 10 mg DAILY PRN RECTAL Constipation 06/12/17 13:30 07/12/17 13:29 Dextrose (Dextrose 50%) STAT PRN IV Hypoglycemia 06/12/17 13:30 07/12/17 13:29 Docusate Sodium (Colace) 100 mg BID ORAL 06/12/17 18:00 07/12/17 17:59 06/14/17 08:33 Doxycycline Monohydrate (Vibramycin) 100 mg EVERY 12 HOURS ORAL 06/12/17 18:00 06/19/17 17:59 06/14/17 08:33 Fluocinonide (Lidex) 1 applic QPM TOPIC 06/13/17 17:00 07/13/17 16:59 06/13/17 17:25 Heparin Sodium (Porcine) (Heparin 5000 units/ml) 5,000 units EVERY 12 HOURS SUBQ 06/12/17 21:00 07/12/17 20:59 06/14/17 08:33 Insulin Aspart (NovoLOG) Q6HR SUBQ 06/12/17 18:00 07/12/17 17:59 06/13/17 17:26 Isosorbide Dinitrate (Isordil) 10 mg TID ORAL 06/14/17 09:00 07/14/17 08:59 06/14/17 12:43 Multivitamins (Multivitamins) 1 tab DAILY ORAL 06/14/17 09:00 07/14/17 08:59 06/14/17 08:33 Oseltamivir Phosphate (Tamiflu) 30 mg TWICE A DAY ORAL 06/12/17 18:00 06/16/17 18:01 06/14/17 10:09 Polyethylene Glycol (Miralax) 17 gm HSPRN PRN ORAL Constipation 06/12/17 13:30 07/12/17 13:29 Promethazine HCl/ Codeine (Phenergan with Codeine) 5 ml Q8H PRN ORAL For Cough 06/12/17 13:30 07/12/17 13:29 Quetiapine Fumarate (SEROquel) 50 mg QHS ORAL 06/13/17 21:00 07/13/17 20:59 06/13/17 21:14 GI: Plan Problems: (1) Hypoalbuminemia (2) Anemia (3) G tube feedings (4) Encounter for PEG (percutaneous endoscopic gastrostomy) (5) Severe malnutrition Plan GT 18fr replaced at bedside, KUB confirmation confirmed. okay to use >> GTFs per RD ST evaluation for oral grat anemia work up OB stool r/o GI bleed monitor H&H, prn transfusions bowel regime ppi fu labs Discussed with Dr. Silva. Thank you for this patient referral, we will follow. SANTANAHermannMIKAD 06/15/17 1221: History of Present Illness General Reason for Hospitalization: General Complaint Present Illness Home Meds Active Scripts Codeine/Promethazine Hcl* (PROMETHAZINE-CODEINE SYRUP*) 118 Ml Syrup, 5 ML ORAL Q8HR Y for For Cough for 5 Days, ML 0 Refills Prov:SOFÍA JUNE D.O. 02/26/17 Reported Medications Oseltamivir Phosphate (TAMIFLU) 30 Mg Capsule, 30 MG ORAL TWICE A DAY, CAP 06/15/17 Buspirone Hcl* (BUSPAR*) 10 Mg Tablet, 5 MG GT THREE TIMES A DAY, #15 TAB 0 Refills 06/12/17 Isosorbide Mononitrate (ISOSORBIDE MONONITRATE ER) 30 Mg Tab.er.24h, 30 MG PO DAILY, TAB 04/26/17 Glucagon (Glucagen) 1 Mg/1 Ml Vial, 1 MG IM PRN Y for Hypoglycemia, VIAL 04/26/17 Bisacodyl (DULCOLAX) 10 Mg Supp.rect, 10 MG RC DAILY Y for Constipation, SUPP 04/26/17 Nut.tx.gluc.intoler,Lac-Fr,Soy (Glucerna 1.5 Saúl) 237 Ml Liquid, 237 ML GT, ML 04/24/17 Omeprazole (OMEPRAZOLE) 20 Mg Tablet.dr, 20 MG GT DAILY, TAB 04/24/17 Valproate Sodium (DEPAKENE) 250 Mg/5 Ml Solution, 250 MG PO BID 04/24/17 Benztropine Mesylate (Cogentin 1mg*) 1 Mg Tablet, 1 MG ORAL EVERY 8 HOURS, TAB 04/24/17 Isosorbide (ISOSORBIDE) 1 Gm Powder, 30 MG GT, GM 09/18/16 Bisacodyl (DULCOLAX) 5 Mg Tablet.dr, 10 MG RC, TAB 09/18/16 Docusate Sodium* (COLACE*) 100 Mg Capsule, 100 MG GT BID, CAP 09/18/16 Divalproex Sodium (DEPAKOTE) 125 Mg Tablet.dr, 10 ML GT, TAB 09/18/16 Lorazepam* (ATIVAN*) 0.5 Mg Tablet, 1 MG GT Q8HR Y for Agitation, TAB 09/18/16 Potassium Chloride (Potassium Chloride) 20 Meq/15 Ml Liquid, 40 MEQ GT DAILY for 5 Days, ML 04/21/16 Sertraline Hcl* (ZOLOFT*) 25 Mg Tablet, 25 MG ORAL DAILY, TAB 04/15/16 Acetaminophen (Acetaminophen) 650 Mg/20.3 Ml Solution, 650 MG ORAL Q8H Y for Prn Headache/Temp > 101, ML 0 Refills 04/15/16 Quetiapine Fumarate* (SEROQUEL*) 25 Mg Tablet, 25 MG ORAL DAILY, TAB 04/15/16 Multivitamins* (MULTIVITAMINS*) 1 Each Tablet, 1 TAB ORAL DAILY, TAB 0 Refills 04/15/16 Magnesium Hydroxide* (MILK OF MAGNESIA*) 400 Mg/5 Ml Oral.susp, 30 ML ORAL DAILY , ML 04/15/16 Insulin Detemir (LEVEMIR FLEXPEN) 100 Unit/1 Ml Insuln.pen, 5 SUBQ BEDTIME, # 300 UNITS 0 Refills 04/15/16 Isosorbide Mononitrate (ISOSORBIDE MONONITRATE) 20 Mg Tablet, 30 MG PO DAILY, TAB 04/15/16 Docusate Sodium* (DOCUSATE SODIUM*) 100 Mg Capsule, 100 MG ORAL TWICE A DAY, CAP 04/15/16 Benztropine Mesylate* (BENZTROPINE MESYLATE*) 1 Mg Tablet, 1 MG PO BID, TAB 04/15/16 Allergies: Coded Allergies: No Known Allergies (Unverified , 04/15/16) GI: Plan Plan The patient was seen and examined at bedside and all new and available data was reviewed in the patients chart. I agree with the above findings, impression and plan. (Patient seen earlier today. Signature stamp does not reflect patient encounter time.). - MD Betty Holcomb,[facility] Jun 14, 2017 16:16 JUANIS SILVA Jun 15, 2017 12:21
--- NOTE | 2017-06-14 16:25 | Diagnostic Imaging Report ---
Indication: Dyspnea Technique: XRAY Chest 1v Comparison: 06/12/2017 Findings: Heart size and mediastinal contours are stable. There is nonspecific interstitial prominence. There is right apical scarring. There is no focal airspace consolidation, pleural effusion or pneumothorax. No acute osseous abnormality is seen. Impression: No significant interval change in appearance of the heart and lungs compared to exam 2 days prior.
[2017-06-14] MEDS: Fluocinonide 15gm Cream TOPIC SCH (16:36)
--- NOTE | 2017-06-14 16:36 | Pulmonology Progress Note ---
Assessment/Plan Problems: (1) Influenza A (2) Pneumonia (3) Hemoptysis (4) G tube feedings (5) Severe malnutrition Assessment/Plan respiratory treatment titrate fio2 check sputum check cultures antitussive on Tamiflu and Doxycycline CT chest pending Subjective ROS Limited/Unobtainable: Yes Allergies: Coded Allergies: No Known Allergies (Unverified , 04/15/16) Objective Last 24 Hour Vital Signs Date Time Temp Pulse Resp B/P (MAP) Pulse Ox O2 Delivery O2 Flow Rate FiO2 06/14/17 12:43 114/53 06/14/17 12:04 98.0 52 14 114/53 99 Room Air 06/14/17 08:33 136/50 06/14/17 07:22 97.2 79 20 136/50 99 Room Air 06/14/17 04:00 97.8 57 21 114/56 96 06/14/17 00:00 98.3 47 19 128/57 97 Room Air 06/13/17 20:00 97.7 48 20 117/56 96 Room Air Intake and Output 06/13/17 06/14/17 19:00 07:00 Intake Total 540 ml 120 ml Balance 540 ml 120 ml Intake Free Water 180 ml 60 ml Tube Feeding 360 ml 60 ml # Voids 3 5 # Bowel Movements 1 Objective eneral Appearance: no apparent distress Lines, tubes and drains: peripheral HEENT: normocephalic, atraumatic, anicteric, mucous membranes moist, other - SMACKING LIPS frequently Neck: non-tender, supple Respiratory/Chest: chest wall non-tender, lungs clear, no accessory muscle use Cardiovascular/Chest: bradycardia, no JVD, bradycardia Abdomen: normal bowel sounds, non tender, soft Extremities: non-tender, no calf tenderness, no edema Skin Exam: warm/dry, no diaphoresis Neurologic: abnormal gait, alert - demented , responsive, disoriented Microbiology Date/Time Source Procedure Growth Status 06/12/17 08:45 Blood Blood Culture - Preliminary NO GROWTH AFTER 24 HOURS Resulted 06/12/17 08:15 Blood Blood Culture - Preliminary NO GROWTH AFTER 24 HOURS Resulted 06/12/17 09:10 Nasal Nares Influenza Types A,B Antigen (MALINA) - Final Complete 06/12/17 11:00 Rectum VRE Culture - Final NO VANCOMYCIN RESISTANT ENTEROCOCCUS ... Complete Current Medications Medications (Trade) Dose Ordered Sig/Carito Route PRN Reason Start Time Stop Time Status Last Admin Dose Admin Acetaminophen (Tylenol) 650 mg Q4H PRN GT Prn Headache/Temp > 101 06/12/17 13:30 07/12/17 13:29 Al Hydroxide/Mg Hydroxide (Mylanta II) 30 ml Q6H PRN ORAL dyspepsia 06/12/17 13:30 07/12/17 13:29 Albuterol/ Ipratropium (Albuterol/ Ipratropium) 3 ml Q4H PRN HHN Shortness of Breath 06/12/17 13:30 06/17/17 13:29 Bisacodyl (Dulcolax) 10 mg DAILY PRN RECTAL Constipation 06/12/17 13:30 07/12/17 13:29 Dextrose (Dextrose 50%) STAT PRN IV Hypoglycemia 06/12/17 13:30 07/12/17 13:29 Docusate Sodium (Colace) 100 mg BID ORAL 06/12/17 18:00 07/12/17 17:59 06/14/17 08:33 Doxycycline Monohydrate (Vibramycin) 100 mg EVERY 12 HOURS ORAL 06/12/17 18:00 06/19/17 17:59 06/14/17 08:33 Fluocinonide (Lidex) 1 applic QPM TOPIC 06/13/17 17:00 07/13/17 16:59 06/13/17 17:25 Heparin Sodium (Porcine) (Heparin 5000 units/ml) 5,000 units EVERY 12 HOURS SUBQ 06/12/17 21:00 07/12/17 20:59 06/14/17 08:33 Insulin Aspart (NovoLOG) Q6HR SUBQ 06/12/17 18:00 07/12/17 17:59 06/13/17 17:26 Isosorbide Dinitrate (Isordil) 10 mg TID ORAL 06/14/17 09:00 07/14/17 08:59 06/14/17 12:43 Multivitamins (Multivitamins) 1 tab DAILY ORAL 06/14/17 09:00 07/14/17 08:59 06/14/17 08:33 Oseltamivir Phosphate (Tamiflu) 30 mg TWICE A DAY ORAL 06/12/17 18:00 06/16/17 18:01 06/14/17 10:09 Polyethylene Glycol (Miralax) 17 gm HSPRN PRN ORAL Constipation 06/12/17 13:30 07/12/17 13:29 Promethazine HCl/ Codeine (Phenergan with Codeine) 5 ml Q8H PRN ORAL For Cough 06/12/17 13:30 07/12/17 13:29 Quetiapine Fumarate (SEROquel) 50 mg QHS ORAL 06/13/17 21:00 07/13/17 20:59 06/13/17 21:14 PARI MATIAS Jun 14, 2017 16:36
[2017-06-14 20:00] VITALS: BP 105/52
[2017-06-15] VITALS (9 sets, daily range): BP systolic 96–129; BP diastolic 52–69
--- NOTE | 2017-06-15 01:09 | Consultation ---
History of Present Illness General Date patient seen: Jun 12, 2017 Chief Complaint: General Complaint Reason for Consultation: GT REPLACEMENT Present Illness HPI 82-year-old white male. The patient has been transferred due to coughing up blood. the pt has been yelling and is confused and uncooperative. the i not manageable Allergies: Coded Allergies: No Known Allergies (Unverified , 04/15/16) Medication History Scheduled Benztropine Mesylate (Cogentin 1mg*), 1 MG ORAL EVERY 8 HOURS, (Reported) Benztropine Mesylate* (Benztropine Mesylate*), 1 MG PO BID, (Reported) Buspirone Hcl* (Buspar*), 5 MG GT THREE TIMES A DAY, (Reported) Docusate Sodium* (Docusate Sodium*), 100 MG ORAL TWICE A DAY, (Reported) Docusate Sodium* (Colace*), 100 MG GT BID, (Reported) Insulin Detemir (Levemir Flexpen), 5 SUBQ BEDTIME, (Reported) Isosorbide Mononitrate (Isosorbide Mononitrate), 30 MG PO DAILY, (Reported) Isosorbide Mononitrate (Isosorbide Mononitrate Er), 30 MG PO DAILY, (Reported) Magnesium Hydroxide* (Milk Of Magnesia*), 30 ML ORAL DAILY, (Reported) Multivitamins* (Multivitamins*), 1 TAB ORAL DAILY, (Reported) Omeprazole (Omeprazole), 20 MG GT DAILY, (Reported) Potassium Chloride (Potassium Chloride), 40 MEQ GT DAILY, (Reported) Quetiapine Fumarate* (Seroquel*), 25 MG ORAL DAILY, (Reported) Sertraline Hcl* (Zoloft*), 25 MG ORAL DAILY, (Reported) Valproate Sodium (Depakene), 250 MG PO BID, (Reported) Scheduled PRN Acetaminophen (Acetaminophen), 650 MG ORAL Q8H PRN for Prn Headache/Temp > 101, (Reported) Bisacodyl (Dulcolax), 10 MG RC DAILY PRN for Constipation, (Reported) Codeine/Promethazine Hcl* (Promethazine-Codeine Syrup*), 5 ML ORAL Q8HR PRN for For Cough Glucagon (Glucagen), 1 MG IM PRN PRN for Hypoglycemia, (Reported) Lorazepam* (Ativan*), 1 MG GT Q8HR PRN for Agitation, (Reported) Miscellaneous Medications Bisacodyl (Dulcolax), 10 MG RC, (Reported) Divalproex Sodium (Depakote), 10 ML GT, (Reported) Isosorbide (Isosorbide), 30 MG GT, (Reported) Nut.tx.gluc.intoler,Lac-Fr,Soy (Glucerna 1.5 Saúl), 237 ML GT, (Reported) Patient History History Provided By: Patient Healthcare decision maker Resuscitation status Do Not Resuscitate Advanced Directive on File Past Medical/Surgical History Past Medical/Surgical History: (1) Cough (2) URI (upper respiratory infection) (3) Jejunostomy tube leak (4) Hemoptysis (5) Anemia (6) Hypoalbuminemia (7) Severe malnutrition (8) Encounter for PEG (percutaneous endoscopic gastrostomy) (9) G tube feedings (10) Pneumonia (11) Influenza A Review of Systems Psychiatric: Reports: prior hx, anxiety, depressed feelings, hallucinations Physical Exam General Appearance: no apparent distress, alert, confused, agitated Last 24 Hour Vital Signs Date Time Temp Pulse Resp B/P (MAP) Pulse Ox O2 Delivery O2 Flow Rate FiO2 06/15/17 00:00 98.6 57 20 118/52 97 06/14/17 20:34 65 16 Room Air 21 06/14/17 20:00 98.9 63 21 105/52 97 06/14/17 18:02 116/55 06/14/17 16:00 97.3 59 20 116/55 98 06/14/17 12:43 114/53 06/14/17 12:04 98.0 52 14 114/53 99 Room Air 06/14/17 08:33 136/50 06/14/17 07:22 97.2 79 20 136/50 99 Room Air 06/14/17 04:00 97.8 57 21 114/56 96 Intake and Output 06/14/17 06/15/17 19:00 07:00 Intake Total 30 ml Balance 30 ml Tube Feeding 30 ml # Voids 3 Height (Feet): 5 Height (Inches): 2.00 Weight (Pounds): 131 Medications Current Medications Medications (Trade) Dose Ordered Sig/Carito Route PRN Reason Start Time Stop Time Status Last Admin Dose Admin Acetaminophen (Tylenol) 650 mg Q4H PRN GT Prn Headache/Temp > 101 06/12/17 13:30 07/12/17 13:29 Al Hydroxide/Mg Hydroxide (Mylanta II) 30 ml Q6H PRN ORAL dyspepsia 06/12/17 13:30 07/12/17 13:29 Albuterol/ Ipratropium (Albuterol/ Ipratropium) 3 ml Q4H PRN HHN Shortness of Breath 06/12/17 13:30 06/17/17 13:29 Bisacodyl (Dulcolax) 10 mg DAILY PRN RECTAL Constipation 06/12/17 13:30 07/12/17 13:29 Dextrose (Dextrose 50%) STAT PRN IV Hypoglycemia 06/12/17 13:30 07/12/17 13:29 Docusate Sodium (Colace) 100 mg BID ORAL 06/12/17 18:00 07/12/17 17:59 06/14/17 18:02 Doxycycline Monohydrate (Vibramycin) 100 mg EVERY 12 HOURS ORAL 06/12/17 18:00 06/19/17 17:59 06/14/17 21:58 Fluocinonide (Lidex) 1 applic QPM TOPIC 06/13/17 17:00 07/13/17 16:59 06/14/17 16:36 Heparin Sodium (Porcine) (Heparin 5000 units/ml) 5,000 units EVERY 12 HOURS SUBQ 06/12/17 21:00 07/12/17 20:59 06/14/17 21:59 Insulin Aspart (NovoLOG) Q6HR SUBQ 06/12/17 18:00 07/12/17 17:59 06/13/17 17:26 Isosorbide Dinitrate (Isordil) 10 mg TID ORAL 06/14/17 09:00 07/14/17 08:59 06/14/17 18:02 Multivitamins (Multivitamins) 1 tab DAILY ORAL 06/14/17 09:00 07/14/17 08:59 06/14/17 08:33 Oseltamivir Phosphate (Tamiflu) 30 mg TWICE A DAY ORAL 06/12/17 18:00 06/16/17 18:01 06/14/17 18:02 Polyethylene Glycol (Miralax) 17 gm HSPRN PRN ORAL Constipation 06/12/17 13:30 07/12/17 13:29 Promethazine HCl/ Codeine (Phenergan with Codeine) 5 ml Q8H PRN ORAL For Cough 06/12/17 13:30 07/12/17 13:29 Quetiapine Fumarate (SEROquel) 50 mg QHS ORAL 06/13/17 21:00 07/13/17 20:59 06/14/17 21:57 Assessment/Plan Status: unchanged Assessment/Plan encephalopathy agitation -seroquel -haldol Breanna Plasencia M.D. Jun 15, 2017 01:09
--- NOTE | 2017-06-15 01:10 | General Progress Note ---
Assessment/Plan Status: unchanged Assessment/Plan encephalopathy agitation -seroquel -haldol im Subjective Date patient seen: Jun 13, 2017 Neurologic/Psychiatric: Reports: anxiety, depressed, emotional problems Allergies: Coded Allergies: No Known Allergies (Unverified , 04/15/16) Objective Last 24 Hour Vital Signs Date Time Temp Pulse Resp B/P (MAP) Pulse Ox O2 Delivery O2 Flow Rate FiO2 06/15/17 00:00 98.6 57 20 118/52 97 06/14/17 20:34 65 16 Room Air 21 06/14/17 20:00 98.9 63 21 105/52 97 06/14/17 18:02 116/55 06/14/17 16:00 97.3 59 20 116/55 98 06/14/17 12:43 114/53 06/14/17 12:04 98.0 52 14 114/53 99 Room Air 06/14/17 08:33 136/50 06/14/17 07:22 97.2 79 20 136/50 99 Room Air 06/14/17 04:00 97.8 57 21 114/56 96 Intake and Output 06/14/17 06/15/17 19:00 07:00 Intake Total 30 ml Balance 30 ml Tube Feeding 30 ml # Voids 3 Height (Feet): 5 Height (Inches): 2.00 Weight (Pounds): 131 General Appearance: no apparent distress, alert, confused, agitated Breanna Pang M.D. Jun 15, 2017 01:10
--- NOTE | 2017-06-15 01:12 | General Progress Note ---
Assessment/Plan Status: stable Assessment/Plan encephalopathy agitation -seroquel -haldol im Subjective Date patient seen: Jun 14, 2017 Allergies: Coded Allergies: No Known Allergies (Unverified , 04/15/16) Subjective the pt is much calmer however pullout his g tube earlier Objective Last 24 Hour Vital Signs Date Time Temp Pulse Resp B/P (MAP) Pulse Ox O2 Delivery O2 Flow Rate FiO2 06/15/17 00:00 98.6 57 20 118/52 97 06/14/17 20:34 65 16 Room Air 21 06/14/17 20:00 98.9 63 21 105/52 97 06/14/17 18:02 116/55 06/14/17 16:00 97.3 59 20 116/55 98 06/14/17 12:43 114/53 06/14/17 12:04 98.0 52 14 114/53 99 Room Air 06/14/17 08:33 136/50 06/14/17 07:22 97.2 79 20 136/50 99 Room Air 06/14/17 04:00 97.8 57 21 114/56 96 Intake and Output 06/14/17 06/15/17 19:00 07:00 Intake Total 30 ml Balance 30 ml Tube Feeding 30 ml # Voids 3 Height (Feet): 5 Height (Inches): 2.00 Weight (Pounds): 131 General Appearance: no apparent distress, alert, confused, agitated Breanna Pang M.D. Jun 15, 2017 01:12
[2017-06-15] MEDS: NovoLOG Insulin Flexpen SUBQ SCH ×4 (05:46→18:00)
[2017-06-15 07:27] LABS: BASOPHILS % (AUTO) 1.4 % (0.0-2.0); EOSINOPHILS % (AUTO) 1.8 % (0.0-3.0); HEMATOCRIT 42.8 % (42.0-52.0); HEMOGLOBIN 14.5 G/DL (14.2-18.0); LYMPHOCYTES % (AUTO) 24.2 % (20.0-45.0); MEAN CORPUSCULAR VOLUME 99 FL (80-99); NEUTROPHILS % (AUTO) 60.6 % (45.0-75.0); PLATELET COUNT 189 K/UL (150-450); RED BLOOD COUNT 4.32 M/UL (4.70-6.10); RED CELL DISTRIBUTION WIDTH 12.7 % (11.6-14.8); WHITE BLOOD COUNT 4.9 K/UL (4.8-10.8)
[2017-06-15 07:28] LABS: ALANINE AMINOTRANSFERASE 11 U/L (12-78); ALBUMIN/GLOBULIN RATIO 0.7 (1.0-2.7); ALKALINE PHOSPHATASE 77 U/L (46-116); ANION GAP 5 mmol/L (5-15); ASPARTATE AMINO TRANSFERASE 18 U/L (15-37); BILIRUBIN,TOTAL 0.5 MG/DL (0.2-1.0); BLOOD UREA NITROGEN 37 mg/dL (7-18); CALCIUM 10.9 MG/DL (8.5-10.1); CARBON DIOXIDE 29 MMOL/L (21-32); CHLORIDE 106 MMOL/L (98-107); PHOSPHORUS 3.1 MG/DL (2.5-4.9); SODIUM 140 MMOL/L (136-145)
[2017-06-15] MEDS: Docusate 100mg/10ml Liq ORAL SCH ×2 (09:46→17:52)
[2017-06-15] MEDS: Heparin 5000 units/ml inj SUBQ SCH ×2 (09:48→20:55)
--- NOTE | 2017-06-15 10:27 | GI Progress Note ---
Assessment/Plan Problems: (1) G tube feedings ICD Codes: Z93.1 - Gastrostomy status SNOMED: 330861285, 926320535 (2) Encounter for PEG (percutaneous endoscopic gastrostomy) ICD Codes: Z43.1 - Encounter for attention to gastrostomy SNOMED: 579527014, 519922916 (3) Severe malnutrition ICD Codes: E43 - Unspecified severe protein-calorie malnutrition SNOMED: 19435227 (4) Hypoalbuminemia ICD Codes: E88.09 - Other disorders of plasma-protein metabolism, not elsewhere classified SNOMED: 432350538 (5) Anemia ICD Codes: D64.9 - Anemia, unspecified SNOMED: 094372764 Status: stable Status Narrative Discussed with Dr. Cheung. Assessment/Plan GT 18fr replaced at bedside, KUB confirmation confirmed. GTFs per ST evaluation for oral grat >> maintain non oral feedings anemia work up OB stool r/o GI bleed monitor H&H, prn transfusions bowel regime ppi fu labs Subjective Gastrointestinal/Abdominal: Reports: no symptoms Objective Last 24 Hour Vital Signs Date Time Temp Pulse Resp B/P (MAP) Pulse Ox O2 Delivery O2 Flow Rate FiO2 06/15/17 09:46 121/59 06/15/17 08:32 49 16 Room Air 21 06/15/17 08:21 98.2 52 20 121/59 96 06/15/17 04:15 96 Room Air 06/15/17 04:00 97.5 57 20 96/69 90 06/15/17 00:00 97 Room Air 06/15/17 00:00 98.6 57 20 118/52 97 06/14/17 20:34 65 16 Room Air 21 06/14/17 20:00 97 Room Air 06/14/17 20:00 98.9 63 21 105/52 97 06/14/17 18:02 116/55 06/14/17 16:00 97.3 59 20 116/55 98 06/14/17 12:43 114/53 06/14/17 12:04 98.0 52 14 114/53 99 Room Air Intake and Output 06/14/17 06/15/17 19:00 07:00 Intake Total 120 ml 450 ml Balance 120 ml 450 ml Intake Free Water 60 ml 120 ml Tube Feeding 60 ml 330 ml # Voids 3 2 Laboratory Tests Test 06/15/17 06:45 White Blood Count 4.9 K/UL (4.8-10.8) Red Blood Count 4.32 M/UL (4.70-6.10) L Hemoglobin 14.5 G/DL (14.2-18.0) Hematocrit 42.8 % (42.0-52.0) Mean Corpuscular Volume 99 FL (80-99) Mean Corpuscular Hemoglobin 33.6 PG (27.0-31.0) H Mean Corpuscular Hemoglobin Concent 33.9 G/DL (32.0-36.0) Red Cell Distribution Width 12.7 % (11.6-14.8) Platelet Count 189 K/UL (150-450) Mean Platelet Volume 6.4 FL (6.5-10.1) L Neutrophils (%) (Auto) 60.6 % (45.0-75.0) Lymphocytes (%) (Auto) 24.2 % (20.0-45.0) Monocytes (%) (Auto) 12.0 % (1.0-10.0) H Eosinophils (%) (Auto) 1.8 % (0.0-3.0) Basophils (%) (Auto) 1.4 % (0.0-2.0) Erythrocyte Sedimentation Rate 44 MM/HR (0-30) H Sodium Level 140 MMOL/L (136-145) Potassium Level 5.0 MMOL/L (3.5-5.1) Chloride Level 106 MMOL/L (98-107) Carbon Dioxide Level 29 MMOL/L (21-32) Anion Gap 5 mmol/L (5-15) Blood Urea Nitrogen 37 mg/dL (7-18) H Creatinine 1.0 MG/DL (0.55-1.30) Estimat Glomerular Filtration Rate mL/min (>60) Glucose Level 103 MG/DL (74-106) Calcium Level 10.9 MG/DL (8.5-10.1) H Phosphorus Level 3.1 MG/DL (2.5-4.9) Magnesium Level 2.3 MG/DL (1.8-2.4) Total Bilirubin 0.5 MG/DL (0.2-1.0) Aspartate Amino Transf (AST/SGOT) 18 U/L (15-37) Alanine Aminotransferase (ALT/SGPT) 11 U/L (12-78) L Alkaline Phosphatase 77 U/L (46-116) C-Reactive Protein, Quantitative < 0.4 mg/dL (0.00-0.90) Total Protein 7.6 G/DL (6.4-8.2) Albumin 3.0 G/DL (3.4-5.0) L Globulin 4.6 g/dL Albumin/Globulin Ratio 0.7 (1.0-2.7) L Height (Feet): 5 Height (Inches): 2.00 Weight (Pounds): 131 General Appearance: WD/WN, no apparent distress, alert, confused, thin Cardiovascular: normal rate Respiratory/Chest: normal breath sounds, no respiratory distress Abdominal Exam: normal bowel sounds, non tender, soft, GT site - c/d/i Extremities: non-tender Rosio Hernández N.P. Jun 15, 2017 10:27
--- NOTE | 2017-06-15 10:36 | Wound Care Consultation ---
Wound Assessment Wound Assessment #1: Wound Number: 1 Wound Present on Admission: Yes New Wound: No Status Change of Wound: No Wound Location Body Site Modif: mid Wound Location Body Site: other - sacrococcygeal Wound Type: pressure ulcer Ricardo Test: Does not Ricardo Pressure Ulcer Stage: Deep Tissue Injury Wound Thickness: Full Thickness Wound Length: 6.5 Wound Width: 4.5 Wound Depth: utd Percent of Wound [place]/Red: 100 - Deep Wound Drainage Amount: None Wound Drainage Odor: None/Absent Tissue Surrounding Wound: Intact Wound General Appearance: Reddened - deep Wound Assessment #2: Wound Number: 2 Wound Present on Admission: Yes New Wound: No Status Change of Wound: No Wound Location Body Site Modif: left Wound Location Body Site: buttocks Wound Type: pressure ulcer Ricardo Test: Does not Ricardo Pressure Ulcer Stage: Deep Tissue Injury Wound Thickness: Full Thickness Wound Length: 3.5 Wound Width: 3.5 Wound Depth: utd Percent of Wound [place]/Red: 100 - deep Wound Drainage Amount: None Wound Drainage Odor: None/Absent Tissue Surrounding Wound: Erythemic Wound General Appearance: Reddened - deep Wound Assessment #3: Wound Number: 3 Wound Present on Admission: Yes New Wound: No Status Change of Wound: No Wound Location Body Site Modif: right Wound Location Body Site: buttocks Wound Type: pressure ulcer Ricardo Test: Does not Ricardo Pressure Ulcer Stage: Deep Tissue Injury Wound Thickness: Full Thickness Wound Length: 3.0 Wound Width: 3.0 Wound Depth: utd Percent of Wound [place]/Red: 100 - deep Wound Drainage Amount: None Wound Drainage Odor: None/Absent Tissue Surrounding Wound: Erythemic Wound General Appearance: Reddened - deep Wound Comment #1 Sacrococcygeal DTI pressure ulcer #2 Left buttock DTI pressure ulcer #3 Right buttock DTI pressure ulcer Recommendation -Local wound care per protocol -Keep clean and dry -Optimize nutrition -Offload both heels -Heel protector on both heels -Turn and reposition -Low air loss mattress -Assess and f/u accordingly for any changes NADIA FELIZ RN Jun 15, 2017 10:36
[2017-06-15] MEDS ORDERED: TAMIFLU30 MG ORAL ×2 (11:35→14:42)
--- NOTE | 2017-06-15 12:08 | Pulmonology Progress Note ---
Assessment/Plan Problems: (1) Influenza A (2) Pneumonia (3) Hemoptysis (4) G tube feedings (5) Severe malnutrition Assessment/Plan looks comfortable, now new complains afebrile respiratory treatment titrate fio2 check sputum check cultures antitussive on Tamiflu and Doxycycline CT chest pending Subjective ROS Limited/Unobtainable: No Allergies: Coded Allergies: No Known Allergies (Unverified , 04/15/16) Objective Last 24 Hour Vital Signs Date Time Temp Pulse Resp B/P (MAP) Pulse Ox O2 Delivery O2 Flow Rate FiO2 06/15/17 11:32 97.6 46 20 120/57 96 06/15/17 09:46 121/59 06/15/17 08:32 49 16 Room Air 21 06/15/17 08:21 98.2 52 20 121/59 96 06/15/17 04:15 96 Room Air 06/15/17 04:00 97.5 57 20 96/69 90 06/15/17 00:00 97 Room Air 06/15/17 00:00 98.6 57 20 118/52 97 06/14/17 20:34 65 16 Room Air 21 06/14/17 20:00 97 Room Air 06/14/17 20:00 98.9 63 21 105/52 97 06/14/17 18:02 116/55 06/14/17 16:00 97.3 59 20 116/55 98 06/14/17 12:43 114/53 Intake and Output 06/14/17 06/15/17 19:00 07:00 Intake Total 120 ml 450 ml Balance 120 ml 450 ml Intake Free Water 60 ml 120 ml Tube Feeding 60 ml 330 ml # Voids 3 2 Objective eneral Appearance: no apparent distress Lines, tubes and drains: peripheral HEENT: normocephalic, atraumatic, anicteric, mucous membranes moist, other - SMACKING LIPS frequently Neck: non-tender, supple Respiratory/Chest: chest wall non-tender, lungs clear, no accessory muscle use Cardiovascular/Chest: bradycardia, no JVD, bradycardia Abdomen: normal bowel sounds, non tender, soft Extremities: non-tender, no calf tenderness, no edema Skin Exam: warm/dry, no diaphoresis Neurologic: abnormal gait, alert - demented , responsive, disoriented Laboratory Tests 06/15/17 06:45: White Blood Count 4.9, Red Blood Count 4.32L, Hemoglobin 14.5, Hematocrit 42.8, Mean Corpuscular Volume 99, Mean Corpuscular Hemoglobin 33.6H, Mean Corpuscular Hemoglobin Concent 33.9, Red Cell Distribution Width 12.7, Platelet Count 189, Mean Platelet Volume 6.4L, Neutrophils (%) (Auto) 60.6, Lymphocytes (%) (Auto) 24.2, Monocytes (%) (Auto) 12.0H, Eosinophils (%) (Auto) 1.8, Basophils (%) ( Auto) 1.4, Erythrocyte Sedimentation Rate 44H, Sodium Level 140, Potassium Level 5.0, Chloride Level 106, Carbon Dioxide Level 29, Anion Gap 5, Blood Urea Nitrogen 37H, Creatinine 1.0, Estimat Glomerular Filtration Rate , Glucose Level 103, Calcium Level 10.9H, Phosphorus Level 3.1, Magnesium Level 2.3, Total Bilirubin 0.5, Aspartate Amino Transf (AST/SGOT) 18, Alanine Aminotransferase (ALT/SGPT) 11L, Alkaline Phosphatase 77, C-Reactive Protein, Quantitative < 0.4, Total Protein 7.6, Albumin 3.0L, Globulin 4.6, Albumin/ Globulin Ratio 0.7L Current Medications Medications (Trade) Dose Ordered Sig/Carito Route PRN Reason Start Time Stop Time Status Last Admin Dose Admin Acetaminophen (Tylenol) 650 mg Q4H PRN GT Prn Headache/Temp > 101 06/12/17 13:30 07/12/17 13:29 Al Hydroxide/Mg Hydroxide (Mylanta II) 30 ml Q6H PRN ORAL dyspepsia 06/12/17 13:30 07/12/17 13:29 Albuterol/ Ipratropium (Albuterol/ Ipratropium) 3 ml Q4H PRN HHN Shortness of Breath 06/12/17 13:30 06/17/17 13:29 Bisacodyl (Dulcolax) 10 mg DAILY PRN RECTAL Constipation 06/12/17 13:30 07/12/17 13:29 Dextrose (Dextrose 50%) STAT PRN IV Hypoglycemia 06/12/17 13:30 07/12/17 13:29 Docusate Sodium (Colace) 100 mg BID ORAL 06/12/17 18:00 07/12/17 17:59 06/15/17 09:46 Doxycycline Monohydrate (Vibramycin) 100 mg EVERY 12 HOURS ORAL 06/12/17 18:00 06/19/17 17:59 06/15/17 09:46 Fluocinonide (Lidex) 1 applic QPM TOPIC 06/13/17 17:00 07/13/17 16:59 06/14/17 16:36 Heparin Sodium (Porcine) (Heparin 5000 units/ml) 5,000 units EVERY 12 HOURS SUBQ 06/12/17 21:00 07/12/17 20:59 06/15/17 09:48 Insulin Aspart (NovoLOG) Q6HR SUBQ 06/12/17 18:00 07/12/17 17:59 06/15/17 12:05 Isosorbide Dinitrate (Isordil) 10 mg TID ORAL 06/14/17 09:00 07/14/17 08:59 06/15/17 09:46 Multivitamins (Multivitamins) 1 tab DAILY ORAL 06/14/17 09:00 07/14/17 08:59 06/15/17 09:46 Oseltamivir Phosphate (Tamiflu) 30 mg TWICE A DAY ORAL 06/12/17 18:00 06/16/17 18:01 06/15/17 09:47 Polyethylene Glycol (Miralax) 17 gm HSPRN PRN ORAL Constipation 06/12/17 13:30 07/12/17 13:29 Promethazine HCl/ Codeine (Phenergan with Codeine) 5 ml Q8H PRN ORAL For Cough 06/12/17 13:30 07/12/17 13:29 Quetiapine Fumarate (SEROquel) 50 mg QHS ORAL 06/13/17 21:00 07/13/17 20:59 06/14/17 21:57 PARI MATIAS Jun 15, 2017 12:08
--- NOTE | 2017-06-15 16:12 | General Progress Note ---
Assessment/Plan Status: stable Assessment/Plan 1. Acute episodes of hemoptysis.Stable 2. Positive for influenza type A. 3. Dementia. 4. Percutaneous endoscopic gastrostomy tube feeding. 5. Coronary artery disease - no evidence of active acute disease. 6. Sinus bradycardia - similar to prior admission - asymptomatic. 7. Psychiatric disorder. 8. Gastrointestinal and deep vein thrombosis prophylaxes. Plan: Pulmonary consult note is reviewed GI to replace the PEG Current Flu treatment. Ok to return to facility, after completion of treatment. Subjective ROS Limited/Unobtainable: Yes Allergies: Coded Allergies: No Known Allergies (Unverified , 04/15/16) Objective Last 24 Hour Vital Signs Date Time Temp Pulse Resp B/P (MAP) Pulse Ox O2 Delivery O2 Flow Rate FiO2 06/15/17 15:58 97.9 45 20 118/56 95 Room Air 21 06/15/17 15:54 97.9 45 20 118/56 95 06/15/17 15:52 97.9 06/15/17 14:45 45 127/55 06/15/17 13:00 127/55 06/15/17 11:32 97.6 46 20 120/57 96 06/15/17 09:46 121/59 06/15/17 08:32 49 16 Room Air 21 06/15/17 08:21 98.2 52 20 121/59 96 06/15/17 04:15 96 Room Air 06/15/17 04:00 97.5 57 20 96/69 90 06/15/17 00:00 97 Room Air 06/15/17 00:00 98.6 57 20 118/52 97 06/14/17 20:34 65 16 Room Air 21 06/14/17 20:00 97 Room Air 06/14/17 20:00 98.9 63 21 105/52 97 06/14/17 18:02 116/55 Intake and Output 06/14/17 06/15/17 18:59 06:59 Intake Total 30 ml 540 ml Balance 30 ml 540 ml Free Water 180 ml Tube Feeding 30 ml 360 ml # Voids 3 2 Laboratory Tests 06/15/17 06:45: White Blood Count 4.9, Red Blood Count 4.32L, Hemoglobin 14.5, Hematocrit 42.8, Mean Corpuscular Volume 99, Mean Corpuscular Hemoglobin 33.6H, Mean Corpuscular Hemoglobin Concent 33.9, Red Cell Distribution Width 12.7, Platelet Count 189, Mean Platelet Volume 6.4L, Neutrophils (%) (Auto) 60.6, Lymphocytes (%) (Auto) 24.2, Monocytes (%) (Auto) 12.0H, Eosinophils (%) (Auto) 1.8, Basophils (%) ( Auto) 1.4, Erythrocyte Sedimentation Rate 44H, Sodium Level 140, Potassium Level 5.0, Chloride Level 106, Carbon Dioxide Level 29, Anion Gap 5, Blood Urea Nitrogen 37H, Creatinine 1.0, Estimat Glomerular Filtration Rate , Glucose Level 103, Calcium Level 10.9H, Phosphorus Level 3.1, Magnesium Level 2.3, Total Bilirubin 0.5, Aspartate Amino Transf (AST/SGOT) 18, Alanine Aminotransferase (ALT/SGPT) 11L, Alkaline Phosphatase 77, C-Reactive Protein, Quantitative < 0.4, Total Protein 7.6, Albumin 3.0L, Globulin 4.6, Albumin/ Globulin Ratio 0.7L Height (Feet): 5 Height (Inches): 2.00 Weight (Pounds): 131 General Appearance: no apparent distress EENT: PERRL/EOMI Neck: supple Cardiovascular: normal rate, bradycardia Respiratory/Chest: crackles/rales Abdomen: soft, other - soft. 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
[2017-06-15] MEDS: Fluocinonide 15gm Cream TOPIC SCH (17:04)
--- NOTE | 2017-06-15 20:01 | General Progress Note ---
Assessment/Plan Status: stable, progressing Assessment/Plan encephalopathy agitation -seroquel -haldol im Subjective Date patient seen: Jun 15, 2017 Neurologic/Psychiatric: Reports: anxiety, depressed, emotional problems Allergies: Coded Allergies: No Known Allergies (Unverified , 04/15/16) Subjective the pt is much calmer however not pulling on his g tube Objective Last 24 Hour Vital Signs Date Time Temp Pulse Resp B/P (MAP) Pulse Ox O2 Delivery O2 Flow Rate FiO2 06/15/17 18:49 129/57 06/15/17 18:46 49 129/57 06/15/17 15:58 97.9 45 20 118/56 95 Room Air 21 06/15/17 15:54 97.9 45 20 118/56 95 06/15/17 15:52 97.9 06/15/17 14:45 45 127/55 06/15/17 13:00 127/55 06/15/17 11:32 97.6 46 20 120/57 96 06/15/17 09:46 121/59 06/15/17 08:32 49 16 Room Air 21 06/15/17 08:21 98.2 52 20 121/59 96 06/15/17 04:15 96 Room Air 06/15/17 04:00 97.5 57 20 96/69 90 06/15/17 00:00 97 Room Air 06/15/17 00:00 98.6 57 20 118/52 97 06/14/17 20:34 65 16 Room Air 21 Intake and Output 06/14/17 06/15/17 19:00 07:00 Intake Total 120 ml 450 ml Balance 120 ml 450 ml Free Water 60 ml 120 ml Tube Feeding 60 ml 330 ml # Voids 3 2 Laboratory Tests 06/15/17 06:45: White Blood Count 4.9, Red Blood Count 4.32L, Hemoglobin 14.5, Hematocrit 42.8, Mean Corpuscular Volume 99, Mean Corpuscular Hemoglobin 33.6H, Mean Corpuscular Hemoglobin Concent 33.9, Red Cell Distribution Width 12.7, Platelet Count 189, Mean Platelet Volume 6.4L, Neutrophils (%) (Auto) 60.6, Lymphocytes (%) (Auto) 24.2, Monocytes (%) (Auto) 12.0H, Eosinophils (%) (Auto) 1.8, Basophils (%) ( Auto) 1.4, Erythrocyte Sedimentation Rate 44H, Sodium Level 140, Potassium Level 5.0, Chloride Level 106, Carbon Dioxide Level 29, Anion Gap 5, Blood Urea Nitrogen 37H, Creatinine 1.0, Estimat Glomerular Filtration Rate , Glucose Level 103, Calcium Level 10.9H, Phosphorus Level 3.1, Magnesium Level 2.3, Total Bilirubin 0.5, Aspartate Amino Transf (AST/SGOT) 18, Alanine Aminotransferase (ALT/SGPT) 11L, Alkaline Phosphatase 77, C-Reactive Protein, Quantitative < 0.4, Total Protein 7.6, Albumin 3.0L, Globulin 4.6, Albumin/ Globulin Ratio 0.7L Height (Feet): 5 Height (Inches): 2.00 Weight (Pounds): 131 General Appearance: no apparent distress, alert, confused Neurologic: alert, disoriented, depressed affect Breanna Pang M.D. Jun 15, 2017 20:01
[2017-06-16] VITALS: BP 126/58
[2017-06-16 04:00] VITALS: BP 102/62
[2017-06-16] MEDS: NovoLOG Insulin Flexpen SUBQ SCH ×4 (05:56→18:00)
[2017-06-16 07:00] LABS: BASOPHILS % (AUTO) 1.8 % (0.0-2.0); EOSINOPHILS % (AUTO) 2.4 % (0.0-3.0); HEMOGLOBIN 14.1 G/DL (14.2-18.0); LYMPHOCYTES % (AUTO) 29.9 % (20.0-45.0); MEAN CORPUSCULAR VOLUME 98 FL (80-99); MONOCYTES % (AUTO) 12.5 % (1.0-10.0); NEUTROPHILS % (AUTO) 53.4 % (45.0-75.0); PLATELET COUNT 194 K/UL (150-450); RED BLOOD COUNT 4.09 M/UL (4.70-6.10); RED CELL DISTRIBUTION WIDTH 12.3 % (11.6-14.8); WHITE BLOOD COUNT 4.4 K/UL (4.8-10.8)
[2017-06-16 07:17] LABS: ANION GAP 6 mmol/L (5-15); BLOOD UREA NITROGEN 38 mg/dL (7-18); CARBON DIOXIDE 31 MMOL/L (21-32); CHLORIDE 106 MMOL/L (98-107); POTASSIUM 4.7 MMOL/L (3.5-5.1); SODIUM 143 MMOL/L (136-145)
[2017-06-16 08:00] VITALS: BP 148/64
[2017-06-16] MEDS: Docusate 100mg/10ml Liq ORAL SCH ×2 (08:24→17:48)
[2017-06-16] MEDS: Heparin 5000 units/ml inj SUBQ SCH (08:30)
--- NOTE | 2017-06-16 10:57 | GI Progress Note ---
Assessment/Plan Problems: (1) G tube feedings ICD Codes: Z93.1 - Gastrostomy status SNOMED: 402362467, 903998879 (2) Encounter for PEG (percutaneous endoscopic gastrostomy) ICD Codes: Z43.1 - Encounter for attention to gastrostomy SNOMED: 099458195, 139266514 (3) Severe malnutrition ICD Codes: E43 - Unspecified severe protein-calorie malnutrition SNOMED: 32925183 (4) Hypoalbuminemia ICD Codes: E88.09 - Other disorders of plasma-protein metabolism, not elsewhere classified SNOMED: 108630655 (5) Anemia ICD Codes: D64.9 - Anemia, unspecified SNOMED: 393699478 Status: stable Status Narrative Discussed with Dr. Cheung. Assessment/Plan GT 18fr replaced at bedside GTFs per RD, tolerating ST evaluation for oral grat >> maintain non oral feedings anemia work up OB stool r/o GI bleed monitor H&H, prn transfusions bowel regime ppi fu labs dc planning The patient was seen and examined at bedside and all new and available data was reviewed in the patients chart. I agree with the above findings, impression and plan. (Patient seen earlier today. Signature stamp does not reflect patient encounter time.). - Lavell Cheung MD Subjective Gastrointestinal/Abdominal: Reports: no symptoms Objective Last 24 Hour Vital Signs Date Time Temp Pulse Resp B/P (MAP) Pulse Ox O2 Delivery O2 Flow Rate FiO2 06/16/17 08:24 148/64 06/16/17 08:00 97.0 46 18 148/64 95 06/16/17 07:44 50 16 Room Air 21 06/16/17 04:00 96 Room Air 06/16/17 04:00 97.8 50 20 102/62 96 06/16/17 00:00 100 Room Air 06/16/17 00:00 97.8 52 20 126/58 100 06/15/17 20:00 96 Room Air 06/15/17 20:00 99.5 50 20 115/61 96 06/15/17 19:10 59 16 Room Air 21 06/15/17 18:49 129/57 06/15/17 18:46 49 129/57 06/15/17 15:58 97.9 45 20 118/56 95 Room Air 21 06/15/17 15:54 97.9 45 20 118/56 95 06/15/17 15:52 97.9 06/15/17 14:45 45 127/55 06/15/17 13:00 127/55 06/15/17 11:32 97.6 46 20 120/57 96 Intake and Output 06/15/17 06/16/17 19:00 07:00 Intake Total 450 ml 510 ml Balance 450 ml 510 ml Intake Oral 0 ml Free Water 90 ml 180 ml Tube Feeding 360 ml 330 ml # Voids 4 Laboratory Tests Test 06/16/17 06:10 White Blood Count 4.4 K/UL (4.8-10.8) L Red Blood Count 4.09 M/UL (4.70-6.10) L Hemoglobin 14.1 G/DL (14.2-18.0) L Hematocrit 40.0 % (42.0-52.0) L Mean Corpuscular Volume 98 FL (80-99) Mean Corpuscular Hemoglobin 34.4 PG (27.0-31.0) H Mean Corpuscular Hemoglobin Concent 35.1 G/DL (32.0-36.0) Red Cell Distribution Width 12.3 % (11.6-14.8) Platelet Count 194 K/UL (150-450) Mean Platelet Volume 6.8 FL (6.5-10.1) Neutrophils (%) (Auto) 53.4 % (45.0-75.0) Lymphocytes (%) (Auto) 29.9 % (20.0-45.0) Monocytes (%) (Auto) 12.5 % (1.0-10.0) H Eosinophils (%) (Auto) 2.4 % (0.0-3.0) Basophils (%) (Auto) 1.8 % (0.0-2.0) Sodium Level 143 MMOL/L (136-145) Potassium Level 4.7 MMOL/L (3.5-5.1) Chloride Level 106 MMOL/L (98-107) Carbon Dioxide Level 31 MMOL/L (21-32) Anion Gap 6 mmol/L (5-15) Blood Urea Nitrogen 38 mg/dL (7-18) H Creatinine 1.0 MG/DL (0.55-1.30) Estimat Glomerular Filtration Rate mL/min (>60) Glucose Level 112 MG/DL (74-106) H Calcium Level 11.0 MG/DL (8.5-10.1) H Height (Feet): 5 Height (Inches): 2.00 Weight (Pounds): 131 General Appearance: WD/WN, no apparent distress, alert, thin Cardiovascular: normal rate Respiratory/Chest: normal breath sounds, no respiratory distress Abdominal Exam: normal bowel sounds, non tender, soft, GT site - c/d/i Extremities: non-tender Rosio Hernández N.PSamir Jun 16, 2017 10:57 JUANIS CHEUNG Jun 21, 2017 13:54
--- NOTE | 2017-06-16 11:06 | General Progress Note ---
Assessment/Plan Status: stable Assessment/Plan 1. Acute episodes of hemoptysis.Stable 2. Positive for influenza type A. 3. Dementia. 4. Percutaneous endoscopic gastrostomy tube feeding. 5. Coronary artery disease - no evidence of active acute disease. 6. Sinus bradycardia - similar to prior admission - asymptomatic. 7. Psychiatric disorder. 8. Gastrointestinal and deep vein thrombosis prophylaxes. Plan: Pulmonary consult note is reviewed GI to replace the PEG Current Flu treatment. Ok to return to facility, after completion of treatment. Subjective ROS Limited/Unobtainable: Yes Allergies: Coded Allergies: No Known Allergies (Unverified , 04/15/16) Objective Last 24 Hour Vital Signs Date Time Temp Pulse Resp B/P (MAP) Pulse Ox O2 Delivery O2 Flow Rate FiO2 06/16/17 08:24 148/64 06/16/17 08:00 97.0 46 18 148/64 95 06/16/17 07:44 50 16 Room Air 21 06/16/17 04:00 96 Room Air 06/16/17 04:00 97.8 50 20 102/62 96 06/16/17 00:00 100 Room Air 06/16/17 00:00 97.8 52 20 126/58 100 06/15/17 20:00 96 Room Air 06/15/17 20:00 99.5 50 20 115/61 96 06/15/17 19:10 59 16 Room Air 21 06/15/17 18:49 129/57 06/15/17 18:46 49 129/57 06/15/17 15:58 97.9 45 20 118/56 95 Room Air 21 06/15/17 15:54 97.9 45 20 118/56 95 06/15/17 15:52 97.9 06/15/17 14:45 45 127/55 06/15/17 13:00 127/55 06/15/17 11:32 97.6 46 20 120/57 96 Intake and Output 06/15/17 06/16/17 19:00 07:00 Intake Total 450 ml 510 ml Balance 450 ml 510 ml Intake Oral 0 ml Free Water 90 ml 180 ml Tube Feeding 360 ml 330 ml # Voids 4 Laboratory Tests 06/16/17 06:10: White Blood Count 4.4L, Red Blood Count 4.09L, Hemoglobin 14.1L, Hematocrit 40.0L, Mean Corpuscular Volume 98, Mean Corpuscular Hemoglobin 34.4H, Mean Corpuscular Hemoglobin Concent 35.1, Red Cell Distribution Width 12.3, Platelet Count 194, Mean Platelet Volume 6.8, Neutrophils (%) (Auto) 53.4, Lymphocytes (% ) (Auto) 29.9, Monocytes (%) (Auto) 12.5H, Eosinophils (%) (Auto) 2.4, Basophils (%) (Auto) 1.8, Sodium Level 143, Potassium Level 4.7, Chloride Level 106, Carbon Dioxide Level 31, Anion Gap 6, Blood Urea Nitrogen 38H, Creatinine 1.0, Estimat Glomerular Filtration Rate , Glucose Level 112H, Calcium Level 11.0H Height (Feet): 5 Height (Inches): 2.00 Weight (Pounds): 131 General Appearance: no apparent distress EENT: PERRL/EOMI Neck: supple Cardiovascular: normal rate Respiratory/Chest: lungs clear Abdomen: soft, other - PEG t in place Extremities: other - atrophied musculatre Neurologic: disoriented, other - demented Leslie Funes MD Jun 16, 2017 11:06
[2017-06-16 12:00] VITALS: BP 134/61
[2017-06-16 16:00] VITALS: BP 136/67
--- NOTE | 2017-06-16 16:06 | Pulmonology Progress Note ---
Assessment/Plan Problems: (1) Influenza A (2) Pneumonia (3) Hemoptysis (4) G tube feedings (5) Severe malnutrition Assessment/Plan looks comfortable, now new complains afebrile respiratory treatment titrate fio2 check sputum check cultures antitussive on Tamiflu and Doxycycline CT chest still pending ( pt refused) Subjective ROS Limited/Unobtainable: No Constitutional: Reports: no symptoms HEENT: Repors: no symptoms Allergies: Coded Allergies: No Known Allergies (Unverified , 04/15/16) Objective Last 24 Hour Vital Signs Date Time Temp Pulse Resp B/P (MAP) Pulse Ox O2 Delivery O2 Flow Rate FiO2 06/16/17 13:45 134/61 06/16/17 12:00 96.1 44 18 134/61 97 06/16/17 08:24 148/64 06/16/17 08:00 97.0 46 18 148/64 95 06/16/17 07:44 50 16 Room Air 21 06/16/17 04:00 96 Room Air 06/16/17 04:00 97.8 50 20 102/62 96 06/16/17 00:00 100 Room Air 06/16/17 00:00 97.8 52 20 126/58 100 06/15/17 20:00 96 Room Air 06/15/17 20:00 99.5 50 20 115/61 96 06/15/17 19:10 59 16 Room Air 21 06/15/17 18:49 129/57 06/15/17 18:46 49 129/57 Intake and Output 06/15/17 06/16/17 19:00 07:00 Intake Total 450 ml 510 ml Balance 450 ml 510 ml Intake Oral 0 ml Free Water 90 ml 180 ml Tube Feeding 360 ml 330 ml # Voids 4 Objective eneral Appearance: no apparent distress Lines, tubes and drains: peripheral HEENT: normocephalic, atraumatic, anicteric, mucous membranes moist, other - SMACKING LIPS frequently Neck: non-tender, supple Respiratory/Chest: chest wall non-tender, lungs clear, no accessory muscle use Cardiovascular/Chest: bradycardia, no JVD, bradycardia Abdomen: normal bowel sounds, non tender, soft Extremities: non-tender, no calf tenderness, no edema Skin Exam: warm/dry, no diaphoresis Neurologic: abnormal gait, alert - demented , responsive, disoriented Microbiology Date/Time Source Procedure Growth Status 06/16/17 13:30 Nasal Nares Right Influenza Types A,B Antigen (MALINA) - Final Complete Laboratory Tests 06/16/17 06:10: White Blood Count 4.4L, Red Blood Count 4.09L, Hemoglobin 14.1L, Hematocrit 40.0L, Mean Corpuscular Volume 98, Mean Corpuscular Hemoglobin 34.4H, Mean Corpuscular Hemoglobin Concent 35.1, Red Cell Distribution Width 12.3, Platelet Count 194, Mean Platelet Volume 6.8, Neutrophils (%) (Auto) 53.4, Lymphocytes (% ) (Auto) 29.9, Monocytes (%) (Auto) 12.5H, Eosinophils (%) (Auto) 2.4, Basophils (%) (Auto) 1.8, Sodium Level 143, Potassium Level 4.7, Chloride Level 106, Carbon Dioxide Level 31, Anion Gap 6, Blood Urea Nitrogen 38H, Creatinine 1.0, Estimat Glomerular Filtration Rate , Glucose Level 112H, Calcium Level 11.0H Current Medications Medications (Trade) Dose Ordered Sig/Carito Route PRN Reason Start Time Stop Time Status Last Admin Dose Admin Acetaminophen (Tylenol) 650 mg Q4H PRN GT Prn Headache/Temp > 101 06/12/17 13:30 07/12/17 13:29 Al Hydroxide/Mg Hydroxide (Mylanta II) 30 ml Q6H PRN ORAL dyspepsia 06/12/17 13:30 07/12/17 13:29 Albuterol/ Ipratropium (Albuterol/ Ipratropium) 3 ml Q4H PRN HHN Shortness of Breath 06/12/17 13:30 06/17/17 13:29 Bisacodyl (Dulcolax) 10 mg DAILY PRN RECTAL Constipation 06/12/17 13:30 07/12/17 13:29 Dextrose (Dextrose 50%) STAT PRN IV Hypoglycemia 06/12/17 13:30 07/12/17 13:29 Docusate Sodium (Colace) 100 mg BID ORAL 06/12/17 18:00 07/12/17 17:59 06/16/17 08:24 Doxycycline Monohydrate (Vibramycin) 100 mg EVERY 12 HOURS ORAL 06/12/17 18:00 1/27/18 17:59 06/16/17 08:24 Fluocinonide (Lidex) 1 applic QPM TOPIC 06/13/17 17:00 07/13/17 16:59 06/15/17 17:04 Heparin Sodium (Porcine) (Heparin 5000 units/ml) 5,000 units EVERY 12 HOURS SUBQ 06/12/17 21:00 07/12/17 20:59 06/16/17 08:30 Insulin Aspart (NovoLOG) Q6HR SUBQ 06/12/17 18:00 07/12/17 17:59 06/16/17 12:28 Isosorbide Dinitrate (Isordil) 10 mg TID ORAL 06/14/17 09:00 07/14/17 08:59 06/16/17 13:45 Multivitamins (Multivitamins) 1 tab DAILY ORAL 06/14/17 09:00 07/14/17 08:59 06/16/17 08:24 Oseltamivir Phosphate (Tamiflu) 30 mg TWICE A DAY ORAL 06/12/17 18:00 06/16/17 18:01 06/16/17 08:57 Polyethylene Glycol (Miralax) 17 gm HSPRN PRN ORAL Constipation 06/12/17 13:30 07/12/17 13:29 Promethazine HCl/ Codeine (Phenergan with Codeine) 5 ml Q8H PRN ORAL For Cough 06/12/17 13:30 07/12/17 13:29 Quetiapine Fumarate (SEROquel) 50 mg QHS ORAL 06/13/17 21:00 07/13/17 20:59 06/15/17 20:54 PARI MATIAS Jun 16, 2017 16:06
[2017-06-16] MEDS ORDERED: NS Irrig 1000ml ONE (17:22)
[2017-06-16] MEDS: Fluocinonide 15gm Cream TOPIC SCH (17:49)
[2017-06-16 20:00] VITALS: BP 117/65
--- NOTE | 2017-06-17 09:46 | General Progress Note ---
Assessment/Plan Status: stable, progressing Assessment/Plan encephalopathy agitation -seroquel -haldol im Subjective Date patient seen: Jun 16, 2017 Neurologic/Psychiatric: Reports: anxiety, depressed Allergies: Coded Allergies: No Known Allergies (Unverified , 04/15/16) Subjective the pt is much calmer\ Objective Last 24 Hour Vital Signs Date Time Temp Pulse Resp B/P (MAP) Pulse Ox O2 Delivery O2 Flow Rate FiO2 06/16/17 20:00 52 18 Room Air 21 06/16/17 20:00 97.3 50 20 117/65 96 06/16/17 17:49 136/67 06/16/17 16:00 96.0 49 18 136/67 96 06/16/17 13:45 134/61 06/16/17 12:00 96.1 44 18 134/61 97 Intake and Output 06/16/17 06/17/17 19:00 07:00 # Voids 4 Height (Feet): 5 Height (Inches): 2.00 Weight (Pounds): 131 General Appearance: no apparent distress, alert, confused, agitated Neurologic: alert, responsive, depressed affect Breanna Pang M.D. Jun 17, 2017 09:46
--- NOTE | 2017-06-17 15:44 | Discharge Summary ---
Discharge Summary Hospital Course Date of Admission Jun 12, 2017 at 10:12 Date of Discharge Jun 16, 2017 at 23:30 Admitting Diagnosis hemoptysis/influenza HPI Jh Lemos is a 82 year old male who was admitted on Jun 12, 2017 at 10: 12 for Hemoptysis,Influenza Hospital Course [id number] Discharge Discharge Disposition Patient was discharged to [facility] Discharge Diagnoses: Richelle Travis NP Jun 17, 2017 15:44
--- NOTE | 2017-06-18 05:45 | Discharge Summary 2 SIG ---
DATE OF ADMISSION: 06/12/2017 DATE OF DISCHARGE: 06/16/2017 CONSULTANTS: 1. Ronda Goncalves M.D. 2. Sorin Chenug M.D. 3. Breanna Pang M.D. BRIEF HOSPITAL COURSE: The patient is an 82-year-old male, who is a resident of shelter facility, was transferred regarding reported one-time incident of coughing up blood. He has history of COPD, dementia, hypertension, diabetes mellitus, dysphagia, on G-tube, and paranoid schizophrenia. Workup at ED showed stable vital signs. EKG showed sinus bradycardia at a rate of 50. Chest x-ray showed chronic interstitial disease. Influenza A was positive. He was then admitted for upper respiratory infection. He was started with Tamiflu. There was no recurrence of hemoptysis noted. Doxycycline was added to the patient's regimen. He was given respiratory treatment. He had episodes of confusion and had been yelling. He was given Seroquel and Haldol IM. He came in with a Cardenas catheter and G-tube site. GT replacement done by Dr. Cheung. On 06/15/2017, a new 18-Mosotho G-tube was inserted and placement was confirmed by [facility]. Tube feedings were restarted. He completed Tamiflu treatment. Repeat influenza screen was negative for influenza A and B. He was eventually discharged back to [facility]. FINAL DIAGNOSES: 1. Acute episode of hemoptysis. 2. Positive influenza type A infection. 3. Dementia. 4. Dysphagia, on gastrostomy tube, status post replacement. 5. Coronary artery disease. 6. Sinus bradycardia. 7. Encephalopathy. 8. Agitation. 9. Severe malnutrition. 10. Paranoid schizophrenia. 11. Sacrococcygeal, bilateral buttock deep tissue injury pressure ulcer, present on admission. [facility]: [facility] DISCHARGE MEDICATIONS: Refer to medications list. Leslie Funes M.D. I have been assigned to dictate discharge summary on this account and I was not involved in the patient's management. Richelle Travis N.P. DR: Rachael JOB#: [id number] CC:
--- NOTE | 2017-06-23 17:41 | Cardiology Report ---
APPROVED REPORT EKG Measurement Heart [id number] Sinus bradycardia Possible Left atrial enlargement Left axis deviation Right bundle branch block Possible Lateral infarct, age undetermined Inferior infarct, age undetermined Abnormal ECG
== END 2017-06-16 23:30 | DRG 193 ==
LOC: EDBD 08:16 → EDUNIT# 08:16 → EMR 08:30 → 4E 10:12 → EDBEDREQ 10:26 → 4E 11:15
PROC: 0D20XUZ Change Feeding Device in Upper Intestinal Tract, External Approach (ICD-10-PCS; principal; 2017-06-15)
DX: J10.1 Influenza due to other identified influenza virus with other respiratory manifestations (principal); E43 Unspecified severe protein-calorie malnutrition; G93.40 Encephalopathy, unspecified; L89.150 Pressure ulcer of sacral region, unstageable; L89.310 Pressure ulcer of right buttock, unstageable; J84.9 Interstitial pulmonary disease, unspecified; L89.320 Pressure ulcer of left buttock, unstageable; F03.90 Unspecified dementia, unspecified severity, without behavioral disturbance, psychotic disturbance, mood disturbance, and anxiety; R04.2 Hemoptysis; Z43.1 Encounter for attention to gastrostomy; F20.0 Paranoid schizophrenia; R13.10 Dysphagia, unspecified; J44.9 Chronic obstructive pulmonary disease, unspecified; R00.1 Bradycardia, unspecified; I10 Essential (primary) hypertension; E11.9 Type 2 diabetes mellitus without complications; I25.10 Atherosclerotic heart disease of native coronary artery without angina pectoris; R45.1 Restlessness and agitation; Z66 Do not resuscitate; D64.9 Anemia, unspecified
CPT/HCPCS: 36415; 71045; 74018; 80048; 80053; 80061; 82962; 83036; 83735; 84100; 84443; 85025; 85651; 86140; 86710; 87040; 87081; 93005; 94664; 99285; J1815; J7620